=== PATIENT | male | born 1950 | race Caucasian/White ===

== ENCOUNTER 2017-04-16 13:57 | Inpatient (IN) | payer MEDICARE, OTHER ==
[~2017-04-16] VITALS: Ht 175.3 cm; Wt 70.8 kg
[2017-04-16] MEDS ORDERED: RIVA1PAT12 TD (14:35)
[2017-04-16] MEDS ORDERED: POLY17PO4 PO (14:35)
[2017-04-16] MEDS ORDERED: ZINC220C8 PO (14:35)
[2017-04-16] MEDS ORDERED: ASCO500T9 PO (14:35)
[2017-04-16] MEDS ORDERED: MAGN400O6 PO (14:35)
[2017-04-16] MEDS ORDERED: POVI3780 TP (14:35)
[2017-04-16] MEDS ORDERED: BISA10SU8 RC (14:35)
[2017-04-16] MEDS ORDERED: MULT-447 PO (14:35)
[2017-04-16] MEDS ORDERED: SENN-167 PO (14:35)
[2017-04-16] MEDS ORDERED: VITA56.7 TP (14:35)
[2017-04-16] MEDS ORDERED: NUTR1PAC14 PO (14:35)
[2017-04-16] MEDS ORDERED: ACET-868 PO (14:35)
[2017-04-16 14:36] LABS: BASOPHILS # (AUTO) 0.3 /CMM (0.0-0.2); BASOPHILS % (AUTO) 2.2 % (0.0-2.0); EOSINOPHILS % (AUTO) 0.1 % (0.0-6.0); HEMATOCRIT 40 % (39-51); HEMOGLOBIN 13.9 g/dL (13.5-17.5); LYMPHOCYTES # (AUTO) 1.2 /CMM (0.8-4.8); MEAN CORPUSCULAR HEMOGLOBIN 32 PG (26.0-33.0); MEAN CORPUSCULAR HGB CONC 35 g/dl (31.0-36.0); MEAN CORPUSCULAR VOLUME 92 fL (80-96); MONOCYTES # (AUTO) 0.7 /CMM (0.1-1.30); MONOCYTES % (AUTO) 4.8 % (2.0-12.0); NEUTROPHILS # (AUTO) 12.8 /CMM (1.8-8.9); NEUTROPHILS % (AUTO) 84.9 % (43.0-81.0); PLATELET COUNT (AUTO) 226 /CMM (150-450); RDW COEFFICIENT OF VARIATION 13.2 (11.5-15.0); RED BLOOD CELL COUNT(AUTO) 4.38 MIL/uL (4.5-6.0)
[2017-04-16 14:40] LABS: APPEARANCE,URINE Clear (CLEAR); BILIRUBIN,URINE SMALL (NEGATIVE); BLOOD, URINE Small Ery/uL (NEGATIVE); KETONES,URINE 15 (NEGATIVE); LEUKOCYTE ESTERASE ,URINE Negative (NEGATIVE); NITRITE, URINE Negative (NEGATIVE); PH,URINE 5.5 (5.0-8.0); PROTEIN,URINE Trace mg/dl (NEGATIVE); UGLUCOSE Negative (NEGATIVE)
[2017-04-16 14:41] LABS: COLOR,URINE DARK YELLOW (YELLOW)
[2017-04-16 14:44] LABS: CALCIUM, SERUM 9.2 mg/dL (8.5-10.1); CARBON DIOXIDE 31 mmol/L (21-32); CHLORIDE 110 mmol/L (98-107); CREATININE 0.9 mg/dL (0.6-1.3); GLUCOSE 143 mg/dL (74-106); POTASSIUM 3.7 mmol/L (3.5-5.1); SODIUM SERUM 147 mmol/L (136-145); UREA NITROGEN, BLOOD 36 mg/dL (7-18)
[2017-04-16 14:50] LABS: ALANINE AMINOTRANSFERASE 53 U/L (12-78); ALBUMIN 2.7 g/dL (3.4-5.0); ALKALINE PHOSPHATASE 84 U/L (46-116); ASPARTATE AMINOTRANSFERASE 33 U/L (15-37); BILIRUBIN,DIRECT 0.6 mg/dL (0.0-0.2); TOTAL PROTEIN, SERUM 7.3 g/dL (6.4-8.2)
[2017-04-16 14:51] LABS: ALCOHOL, BLOOD < 3 mg/dL (0-0); SALICYLATE 1.7 mg/dL (2.8-20.0)
[2017-04-16 14:52] LABS: ACETAMINOPHEN < 2 ug/ml (10-30); TROPONIN I < 0.017 ng/mL (0.00-0.056)
[2017-04-16 14:58] LABS: BACTERIA,URINE None seen /HPF (None Seen); SQUAMOUS EPITHELIAL CELL,UR Few /HPF (None Seen); WBC,URINE 0-3 /HPF (0-3)
--- NOTE | 2017-04-16 15:03 | NUR ---
SUSANNE CUETO CALLED FOR EVAL
[2017-04-16 16:00] VITALS: BP 127/87
[2017-04-16] MEDS ORDERED: PIPERACILLIN /TAZOBACTAM 3.375 G in IV D5W 50 ML IV ONE (16:00)
[2017-04-16] MEDS ORDERED: IV NS 0.9% 1,000 ML BAG IV ONE (16:00)
[2017-04-16] MEDS ORDERED: VANCOMYCIN 1 GM in IV D5W 250 ML IV ONE (16:00)
--- NOTE | 2017-04-16 17:01 | NUR ---
REPORT GIVEN TO GERARDO BUCHANAN FOR ZAIDA
--- NOTE | 2017-04-16 17:30 | NUR ---
RN MS NOTES RECEIVED PT FROM E.R. STAFF VIA JESSE, AWAKE, ALERT TO SELF, VERBALLY RESPONSIVE, WITH CONFUSION, NO SIGN OF PAIN OR DISTRESS, ASSISTED TO BED, MADE COMFORTABLE, SKIN CHECK DONE, KEPT WARM AND COMFORTABLE IN BED.
--- NOTE | 2017-04-16 19:00 | NUR ---
RN NOTES RECEIVE PT IN BED, A/O X 1, STABLE, NO S/S OF DISTRESS, PATIENT KEPT COMFORTABLE AT THIS TIME, SAFETY MEASURES IN PLACE, CALL LIGHT WITHIN REACH, WILL CONTINUE TO MONITOR.
[2017-04-16] MEDS ORDERED: IV NS 0.9% 1,000 ML BAG IV PRN (19:30)
[2017-04-16 20:00] VITALS: BP 139/78
[2017-04-16] MEDS ORDERED: ZOLPIDEM TARTRATE 5 MG TABLET PO PRN (20:00)
[2017-04-16] MEDS ORDERED: ONDANSETRON HCL/PF 4 MG/2 ML VIAL IVP PRN (20:00)
[2017-04-16] MEDS ORDERED: HYDROCODONE/APAP 5/325MG 1 EACH TABLET PO PRN (20:00)
[2017-04-16] MEDS ORDERED: ACETAMINOPHEN 325 MG TABLET PO PRN (20:00)
[2017-04-16] MEDS: IV NS 0.9% 1,000 ML IV PRN (20:09)
[2017-04-16] MEDS ORDERED: FEE PK DOSING 1 MIN EA MC ONE (20:10)
[2017-04-16] MEDS: ENOXAPARIN SODIUM 40 MG/0.4 ML DISP.SYRIN SQ SCH (20:11)
[2017-04-16 21:52] VITALS: BP 139/78
[2017-04-17] MEDS: VANCOMYCIN 1 GM in IV D5W 250 ML IV SCH ×2 (04:07→16:06)
[2017-04-17 06:13] LABS: BASOPHILS % (AUTO) 0.3 % (0.0-2.0); EOSINOPHILS % (AUTO) 0.2 % (0.0-6.0); HEMATOCRIT 39 % (39-51); HEMOGLOBIN 13.4 g/dL (13.5-17.5); LYMPHOCYTES # (AUTO) 0.9 /CMM (0.8-4.8); MEAN CORPUSCULAR HEMOGLOBIN 33 PG (26.0-33.0); MEAN CORPUSCULAR HGB CONC 35 g/dl (31.0-36.0); MEAN CORPUSCULAR VOLUME 94 fL (80-96); MONOCYTES # (AUTO) 0.6 /CMM (0.1-1.30); MONOCYTES % (AUTO) 5.1 % (2.0-12.0); NEUTROPHILS # (AUTO) 10.2 /CMM (1.8-8.9); NEUTROPHILS % (AUTO) 86.4 % (43.0-81.0); PLATELET COUNT (AUTO) 196 /CMM (150-450); RDW COEFFICIENT OF VARIATION 13.8 (11.5-15.0); RED BLOOD CELL COUNT(AUTO) 4.11 MIL/uL (4.5-6.0); WHITE BLOOD COUNT (AUTO) 11.8 K/uL (4.3-11.0)
[2017-04-17 06:25] LABS: CREATININE 0.9 mg/dL (0.6-1.3); MAGNESIUM 2.1 mg/dL (1.8-2.4); POTASSIUM 3.6 mmol/L (3.5-5.1)
--- NOTE | 2017-04-17 06:44 | NUR ---
MS RN CLOSING NOTES PATIENT IN BED ASLEEP AND EASILY AWAKEN, 1:1 SITTER, HEAD OF BED ELEVATED FOR BETTER LUNG EXPANSION AND GOOD CIRCULATION. STABLE, NOT IN DISTRESS. TOLERATING ROOM AIR 99% NO SOB, KEPT CLEAN AND DRY AND COMFORTABLE. NEEDS ATTENDED AND ANTICIPATED. NURSING CARE RENDERED, ASSISTED REPOSITION Q2H, ON LOW BED TO ENSURE SAFETY, CALL LIGHT WITHIN REACH, WILL ENDORSE TO THE NEXT SHIFT CONTINUE PLAN OF CARE.
[2017-04-17 08:00] VITALS: BP 140/89
[2017-04-17] MEDS ORDERED: HYDROGEL DRESSING 90 GM TUBE TP PRN (08:30)
[2017-04-17] MEDS ORDERED: Z GUARD REMEDY 2 OZ OINT TP PRN (08:30)
--- NOTE | 2017-04-17 08:37 | NUR ---
WOUND CARE CONSULT: PT PRESENTS WITH MULTIPLE WOUNDS INCLUDING STAGE 2 ULCER TO LEFT BUTTOCK, MULTIPLE ESCHARS TO LOWER EXTREMITIES, ESPECIALLY LEFT LOWER EXTREMITY, LEFT 2ND AND 3RD DORSAL TOES, ALL PRESENT ON ADMISSION. RECOMMEND LEORA ISOFLEX LOW AIRLOSS BED. RECOMMEND PODIATRY CONSULT. ALL SKIN PROTECTION AND WOUND RECOMMENDATIONS DISCUSSED WITH NURSING STAFF. WILL SEE PRN. SHETH IN AGREEMENT WITH PLAN OF CARE. CURRENT JUSTYN SCORE IS 14. Addendum: 04/17/17 at 0839 by OSMAN HARVEY WNDNU Amended: Links added.
[2017-04-17] MEDS ORDERED: HYDROGEL DRESSING 90 GM TUBE TP SCH (09:00)
[2017-04-17] MEDS: SENNOSIDES 8.6 MG TABLET PO SCH (09:50)
[2017-04-17] MEDS: MULTIVIT, IRON, MIN NO. 8, FA 1 TAB PO SCH (09:50)
[2017-04-17] MEDS: ZINC SULFATE 220 MG CAPSULE PO SCH (09:50)
[2017-04-17] MEDS: ASCORBIC ACID 500 MG TABLET PO SCH (09:50)
[2017-04-17] MEDS: RIVASTIGMINE TARTRATE 4.6 MG PATCH.TD24 TD SCH (11:38)
[2017-04-17] MEDS: Z GUARD REMEDY 2 OZ OINT TP SCH (12:57)
--- NOTE | 2017-04-17 14:00 | NUR ---
RN NOTES PATIENT BECAME RESTLESS AND COMBATIVE WITH STAFF, TRYING TO GET OUT OF BED, PATIENT DOES NOT FOLLOW INSTRUCTIONS. CALLED DR. DAWN, AND RECEIVED AN ORDER FOR ZYPREXA IM X1, ORDER NOTED AND CARRIED OUT.
[2017-04-17] MEDS ORDERED: OLANZAPINE 10 MG VIAL IM ONE ×2 (14:30→15:00)
--- NOTE | 2017-04-17 14:58 | NUR ---
DEWAYNE NOTES PATIENT GOT AGITATED, ACCIDENTALLY DROPPED THE MEDICATION ON THE FLOOR, AND VIAL BROKE. Addendum: 04/17/17 at 1502 by AISSATOU MARTELL RN ADDENDUM: SHERLYN WASTED, WITNESSED BY JACK BUCHANAN. CALLED PHARMACY. RE-ORDERED MEDICATION.
[2017-04-17 16:00] VITALS: BP 138/83
[2017-04-17] MEDS: BOOST PLUS FOOD-VANILLA 237 ML BOX PO SCH (17:15)
--- NOTE | 2017-04-17 17:59 | NUR ---
RN NOTES PATIENT NOTE WITH INCREASED AGITATION, PATIENT KEPT SAYING HE WANTS TO LEAVE AND HE NEEDS TO GET SOMETHING IN THE CAR, PATIENT IS VERY COMBATIVE, ATTEMPTED TO KICK, BITE, AND HIT STAFF. PATIENT REFUSING ADL CARE, REFUSING WOUND TREATMENT, MEPILEX ON FOOT, CAME OFF DUE TO PATIENT'S CONSTANT RUBBING AND MOVING. DR. DAWN MADE AWARE OF PATIENT'S CURRENT BEHAVIOR. RECEIVED ORDER FOR HALDOL 5MG X1, ATIVAN 1MG X1 AND COGENTIN 1MG X1 NOW. ORDER NOTED AND CARRIED OUT.
[2017-04-17] MEDS ORDERED: LORAZEPAM INJ 2 MG/ML VIAL IM ONE (18:00)
[2017-04-17] MEDS ORDERED: BENZTROPINE MESYLATE (2MG/2ML) 2 MG/2 ML AMPUL IM ONE (18:00)
[2017-04-17] MEDS ORDERED: HALOPERIDOL LACTATE INJ 5 MG/ML VIAL IM ONE (18:00)
--- NOTE | 2017-04-17 18:32 | NUR ---
RN NOTES WAITING FOR PHARMACY TO DELIVER COGENTIN. PT GIVEN ATIVAN AND HALDOL. ADL CARE PROVIDED. SITTER AT BEDSIDE. STILL UNABLE TO PROVIDE WOUND TREATMENT PATIENT STILL KICKS. NEEDS ATTENDED AND MET, CALL LIGHT WITHIN REACH, WILL ENDORSE TO MACHINE CELL TUBER FOR ZAIDA.
--- NOTE | 2017-04-17 19:00 | NUR ---
RN NOTES RECEIVE PT IN BED, A/O X 1, CONFUSED, STABLE, NO S/S OF DISTRESS, PATIENT KEPT COMFORTABLE AT THIS TIME, SAFETY MEASURES IN PLACE, CALL LIGHT WITHIN REACH, WILL CONTINUE TO MONITOR.
[2017-04-17 20:00] VITALS: BP 125/75
[2017-04-17] MEDS: IV NS 0.9% 1,000 ML IV PRN (20:30)
[2017-04-17] MEDS: ENOXAPARIN SODIUM 40 MG/0.4 ML DISP.SYRIN SQ SCH (20:34)
[2017-04-18] MEDS: VANCOMYCIN 1 GM in IV D5W 250 ML IV SCH ×2 (04:16→17:39)
--- NOTE | 2017-04-18 06:26 | NUR ---
MS RN CLOSING NOTES PATIENT IN BED COMFORTABLY ASLEEP AND EASILY AWAKEN, STABLE CONDITION NOT IN FORM OF DISTRESS. NO SOB, TOLERATING ROOM AIR 99% PT 1:1 SITTER AT BEDSIDE, NEEDS ATTENDED AND ANTICIPATED. NURSING CARE RENDERED, KEPT CLEAN AND DRY AND COMFORTABLE. TX ORDERED TO HIS WOUNDS, GOOD SKIN CARE PROVIDED. ASSITED REPOSITION PATIENT Q2H. ON LOW BED TO ENSURE SAFETY, CALL LIGHT WITHIN REACH, WILL ENDORSE TO THE NEXT SHIFT CONTINUE PLAN OF CARE.
--- NOTE | 2017-04-18 07:29 | NUR ---
MS RN OPENING NOTES PATIENT RECEIVED ASLEEP IN BED, AWAKENS EASILY. SITTER AT BEDSIDE FOR CLOSE MONITORING. HOB ELEVATED. ON ROOM AIR, BREATHING EVEN AND UNLABORED. IV ACCESSES ON LAC AND RIGHT HAND BOTH INTACT AND PATENT. IVF OF NS @ 75ML/HR INFUSING TO RAC. BED IN LOW/LOCKED POSITION WITH SIDE-RAILS UP APPROPRIATE. CALL LIGHT WITHIN EASY REACH. WILL CONTINUE TO CLOSELY MONITOR PT ACCORDINGLY.
[2017-04-18] MEDS: BOOST PLUS FOOD-VANILLA 237 ML BOX PO SCH ×2 (07:57→16:32)
[2017-04-18] MEDS: RIVASTIGMINE TARTRATE 4.6 MG PATCH.TD24 TD SCH (08:23)
[2017-04-18] MEDS: ZINC SULFATE 220 MG CAPSULE PO SCH (08:23)
[2017-04-18] MEDS: SENNOSIDES 8.6 MG TABLET PO SCH (08:23)
[2017-04-18] MEDS: Z GUARD REMEDY 2 OZ OINT TP SCH (08:23)
[2017-04-18] MEDS: MULTIVIT, IRON, MIN NO. 8, FA 1 TAB PO SCH (08:23)
[2017-04-18] MEDS: ASCORBIC ACID 500 MG TABLET PO SCH (08:23)
[2017-04-18 11:22] LABS: CALCIUM, SERUM 8.5 mg/dL (8.5-10.1); CREATININE 0.9 mg/dL (0.6-1.3); POTASSIUM 3.1 mmol/L (3.5-5.1)
[2017-04-18] MEDS ORDERED: POTASSIUM CHLORIDE 20 MEQ TAB.PRT.SR PO ONE (12:00)
[2017-04-18] MEDS: HALOPERIDOL 1 MG TABLET PO SCH ×2 (12:07→17:39)
[2017-04-18] MEDS: GABAPENTIN 100 MG CAPSULE PO SCH ×2 (12:07→17:39)
[2017-04-18] MEDS: BENZTROPINE MESYLATE (1 MG) 1 MG TABLET PO SCH ×2 (12:07→17:39)
[2017-04-18 12:15] LABS: BASOPHILS # (AUTO) 0.1 /CMM (0.0-0.2); BASOPHILS % (AUTO) 0.3 % (0.0-2.0); HEMATOCRIT 38 % (39-51); HEMOGLOBIN 13.1 g/dL (13.5-17.5); LYMPHOCYTES # (AUTO) 0.9 /CMM (0.8-4.8); LYMPHOCYTES % (AUTO) 5.5 % (20.0-44.0); MEAN CORPUSCULAR HEMOGLOBIN 32 PG (26.0-33.0); MEAN CORPUSCULAR HGB CONC 35 g/dl (31.0-36.0); MEAN CORPUSCULAR VOLUME 92 fL (80-96); MONOCYTES # (AUTO) 0.5 /CMM (0.1-1.30); MONOCYTES % (AUTO) 3.4 % (2.0-12.0); NEUTROPHILS # (AUTO) 14.3 /CMM (1.8-8.9); NEUTROPHILS % (AUTO) 90.8 % (43.0-81.0); PLATELET COUNT (AUTO) 191 /CMM (150-450); RDW COEFFICIENT OF VARIATION 13.8 (11.5-15.0); RED BLOOD CELL COUNT(AUTO) 4.09 MIL/uL (4.5-6.0); WHITE BLOOD COUNT (AUTO) 15.7 K/uL (4.3-11.0)
[2017-04-18 13:01] LABS: LYMPHOCYTES % (MANUAL) 7 % (16-48); MONOCYTES % (MANUAL) 7 % (0-11.0); NEUTROPHILS % (MANUAL) 86 (42-76)
[2017-04-18] MEDS: IV NS 0.9% 1,000 ML IV PRN (16:28)
--- NOTE | 2017-04-18 18:33 | NUR ---
MS RN CLOSING NOTES PATIENT PRESENTLY AWAKE, CALM AND QUIET IN BED WITH SITTER AT BEDSIDE FOR CLOSE MONITORING. A/O X 1, CONFUSED AND RESTLESS ON AND OFF DURING THE DAY, EMOTIONAL SUPPORT GIVEN. ON ROOM AIR, BREATHING EVEN AND UNLABORED, NO ACUTE RESPIRATORY DISTRESS NOTED. IV ACCESS ON LAC AND SIVAN BOTH INTACT AND PATENT. IVF OF NS @ 75ML/HR INFUSING TO SIVAN IV SITE, NO SIGNS OF INFILTRATION NOTED. HOB KEPT ELEVATED. BED IN LOW/LOCKED POSITION WITH SIDE-RAILS UP APPROPRIATE. CALL LIGHT WITHIN EASY REACH. ALL SAFETY PRECAUTIONS MAINTAINED. ALL NEEDS AND CARE PROVIDED WELL. WILL ENDORSED TO SPACE PHYSICIST NURSE FOR ZAIDA.
--- NOTE | 2017-04-18 19:00 | NUR ---
RN NOTES RECEIVE PT IN BED, A/O X 1, 1:1 SITTER. CONFUSED, STABLE, NO S/S OF DISTRESS, PATIENT KEPT COMFORTABLE AT THIS TIME, SAFETY MEASURES IN PLACE, CALL LIGHT WITHIN REACH, WILL CONTINUE TO MONITOR.
[2017-04-18 20:00] VITALS: BP 142/75
[2017-04-18] MEDS: ENOXAPARIN SODIUM 40 MG/0.4 ML DISP.SYRIN SQ SCH (20:50)
[2017-04-19] MEDS: VANCOMYCIN 1 GM in IV D5W 250 ML IV SCH ×2 (04:13→17:19)
--- NOTE | 2017-04-19 06:23 | NUR ---
MS RN CLOSING NOTES PT COMFORTABLY ASLEEP IN BED AND EASILY AWAKEN, NOT IN RESPIRATORY DISTRESS TOLERATING ROOM AIR 95% HEAD OF BED ELEVATED AT ALL TIMES FOR BETTER LUNG EXPANSION AND GOOD CIRCULATION. STABLE, TREATMENT ORDERED TO THE PT WOUNDS, GOOD SKIN CARE PROVIDED. HANDLED WITH CARE, NOT APPEAR IN DISTRESS NEEDS ATTENDED AND ANTICIPATED. KEPT CLEAN AND DRY AND COMFORTABLE. NURSING CARE RENDERED, PT REPOSITIONED EVERY 2 HOURS FOR COMFORT AND SKIN MGT, 1:1 SITTER AT BEDSIDE. ON LOW BED TO ENSURE SAFETY, CALL LIGHT WITHIN REACH, WILL ENDORSE TO THE NEXT SHIFT CONTINUE PLAN OF CARE.
[2017-04-19 06:33] LABS: HEMATOCRIT 34 % (39-51); HEMOGLOBIN 11.9 g/dL (13.5-17.5); LYMPHOCYTES # (AUTO) 0.8 /CMM (0.8-4.8); MEAN CORPUSCULAR HEMOGLOBIN 32 PG (26.0-33.0); MEAN CORPUSCULAR HGB CONC 35 g/dl (31.0-36.0); MEAN CORPUSCULAR VOLUME 94 fL (80-96); MONOCYTES # (AUTO) 0.6 /CMM (0.1-1.30); MONOCYTES % (AUTO) 3.6 % (2.0-12.0); NEUTROPHILS # (AUTO) 14.6 /CMM (1.8-8.9); NEUTROPHILS % (AUTO) 91.4 % (43.0-81.0); PLATELET COUNT (AUTO) 163 /CMM (150-450); RDW COEFFICIENT OF VARIATION 14.2 (11.5-15.0); RED BLOOD CELL COUNT(AUTO) 3.67 MIL/uL (4.5-6.0)
[2017-04-19 06:49] LABS: CALCIUM, SERUM 8.3 mg/dL (8.5-10.1); CREATININE 0.7 mg/dL (0.6-1.3); MAGNESIUM 1.9 mg/dL (1.8-2.4); PHOSPHORUS 2.7 mg/dL (2.5-4.9)
[2017-04-19 06:50] LABS: POTASSIUM 2.7 mmol/L (3.5-5.1)
--- NOTE | 2017-04-19 07:11 | NUR ---
MS RN NOTES ENDORSE TO THE AM SHIFT RN RESULT OF K
[2017-04-19 07:16] LABS: LYMPHOCYTES % (MANUAL) 5 % (16-48); MONOCYTES % (MANUAL) 5 % (0-11.0); NEUTROPHILS % (MANUAL) 90 (42-76)
--- NOTE | 2017-04-19 07:41 | NUR ---
MS RN OPENING NOTES PATIENT RECEIVED AWAKE IN BED IN NO ACUTE SIGNS OF DISTRESS. SITTER AT BEDSIDE FOR CLOSE MONITORING. A/O X1, CONFUSED AND SLIGHTLY AGITATED. ON ROOM AIR, BREATHING EVEN AND UNLABORED. IVF OF NS @ 75ML/HR INFUSING TO SIVAN, NO SIGNS OF INFILTRATION NOTED. BED IN LOW/LOCKED POSITION WITH SIDE-RAILS UP APPROPRIATE. CALL LIGHT WITHIN EASY REACH. WILL CONTINUE TO CLOSELY MONITOR PT ACCORDINGLY.
[2017-04-19 08:00] VITALS: BP 132/87
[2017-04-19] MEDS: BOOST PLUS FOOD-VANILLA 237 ML BOX PO SCH ×2 (08:07→16:51)
[2017-04-19] MEDS: HALOPERIDOL 1 MG TABLET PO SCH ×3 (08:09→17:45)
[2017-04-19] MEDS: BENZTROPINE MESYLATE (1 MG) 1 MG TABLET PO SCH ×3 (08:10→17:47)
[2017-04-19] MEDS: RIVASTIGMINE TARTRATE 4.6 MG PATCH.TD24 TD SCH (08:10)
[2017-04-19] MEDS: GABAPENTIN 100 MG CAPSULE PO SCH ×3 (08:10→17:45)
[2017-04-19] MEDS: MULTIVIT, IRON, MIN NO. 8, FA 1 TAB PO SCH (08:10)
[2017-04-19] MEDS: SENNOSIDES 8.6 MG TABLET PO SCH (08:10)
[2017-04-19] MEDS: ASCORBIC ACID 500 MG TABLET PO SCH (08:10)
[2017-04-19] MEDS: Z GUARD REMEDY 2 OZ OINT TP SCH (08:11)
[2017-04-19] MEDS: ZINC SULFATE 220 MG CAPSULE PO SCH (08:17)
[2017-04-19] MEDS ORDERED: LORAZEPAM 0.5 MG TABLET PO PRN (10:30)
[2017-04-19] MEDS: POTASSIUM CL. PREMIX PERIPHER. 50 ML IV SCH ×6 (12:07→16:46)
[2017-04-19] MEDS: LEVOFLOXACIN 750 MG /D5W 150ML 750 MG in PREMIX 1 EA IV SCH (12:59)
[2017-04-19] MEDS ORDERED: TEMAZEPAM 15 MG CAPSULE PO PRN (13:00)
[2017-04-19] MEDS: IV NS 0.9% 1,000 ML IV PRN (14:19)
[2017-04-19 16:00] VITALS: BP 111/68
[2017-04-19] MEDS: LACTOBACILLUS RHAMNOSUS GG 1 EACH CAP.SPRINK PO SCH (16:51)
--- NOTE | 2017-04-19 18:51 | NUR ---
MS RN CLOSING NOTES PATIENT AWAKE IN BED WITH SITTER AT BEDSIDE FOR CLOSE MONITORING. A/O X1, CONFUSED AND AGITATED ON AND OFF DURING THE DAY. ALL NEEDS AND CARE PROVIDED WELL. ON ROOM AIR, BREATHING EVEN AND UNLABORED. IVF OF NS @ 75ML/HR INFUSING TO LAC, NO SIGNS OF INFILTRATION NOTED. HOB KEPT ELEVATED. BED IN LOW AND LOCKED POSITION WITH SIDE-RAILS UP APPROPRIATE. CALL LIGHT WITHIN EASY REACH. WILL CONTINUE TO CLOSELY MONITOR PT ACCORDINGLY.
--- NOTE | 2017-04-19 19:20 | NUR ---
RN OPEN NOTES RECEIVED PATIENT RESTING IN BED, EASILY AROUSABLE, WITH SITTER AT BEDSIDE. A/O X1. NO SIGNS OF DISTRESS OR DISCOMFORT. BREATHING EVEN AND UNLABORED. IV ACCESS IN LAC WITH VANCO INFUSING, PATENT AND INTACT,NO SIGNS OF REDNESS OR INFILTRATION. BED IN LOW LOCKED POSITION WITH SIDE RAILS X3. CALL LIGHT WITHIN REACH. WILL CONTINUE TO MONITOR.
[2017-04-19 20:00] VITALS: BP 125/88
[2017-04-19] MEDS: ENOXAPARIN SODIUM 40 MG/0.4 ML DISP.SYRIN SQ SCH (21:01)
[2017-04-20] MEDS: VANCOMYCIN 1 GM in IV D5W 250 ML IV SCH ×2 (05:32→18:58)
--- NOTE | 2017-04-20 06:53 | NUR ---
RN CLOSING NOTES PATIENT AWAKE IN BED WITH SITTER AT BEDSIDE. A/O X1. NO SIGNS OF DISTRESS OR DISCOMFORT. BREATHING EVEN AND UNLABORED. IV ACCESS IN RFA WITH NS INFUSING, PATENT AND INTACT, NO SIGNS OF REDNESS OR INFILTRATION. ALL NEEDS MET. NO SIGNIFICANT CHANGES THROUGH THE NIGHT. PATIENT KEPT CLEAN DRY AND COMFORTABLE. ASSISTED PATIENT WITH REPOSITIONING Q2H AND PRN. BED IN LOW LOCKED POSITION WITH SIDE RAILS X3. CALL LIGHT WITHIN REACH. WILL ENDORSE TO AM SHIFT FOR ZAIDA.
[2017-04-20 06:54] LABS: APPEARANCE,URINE TURBID (CLEAR); BILIRUBIN,URINE 1+ (NEGATIVE); BLOOD, URINE NEGATIVE Ery/uL (NEGATIVE); COLOR,URINE AMBER (YELLOW); KETONES,URINE TRACE (NEGATIVE); LEUKOCYTE ESTERASE ,URINE NEGATIVE (NEGATIVE); NITRITE, URINE POSITIVE (NEGATIVE); PH,URINE 5.5 (5.0-8.0); PROTEIN,URINE TRACE mg/dl (NEGATIVE); UGLUCOSE NEGATIVE (NEGATIVE)
[2017-04-20 06:57] LABS: HEMATOCRIT 37 % (39-51); HEMOGLOBIN 12.9 g/dL (13.5-17.5); LYMPHOCYTES # (AUTO) 0.6 /CMM (0.8-4.8); LYMPHOCYTES % (AUTO) 3.7 % (20.0-44.0); MEAN CORPUSCULAR HEMOGLOBIN 32 PG (26.0-33.0); MEAN CORPUSCULAR HGB CONC 35 g/dl (31.0-36.0); MEAN CORPUSCULAR VOLUME 93 fL (80-96); MONOCYTES # (AUTO) 0.6 /CMM (0.1-1.30); MONOCYTES % (AUTO) 3.5 % (2.0-12.0); NEUTROPHILS # (AUTO) 15.5 /CMM (1.8-8.9); NEUTROPHILS % (AUTO) 92.8 % (43.0-81.0); PLATELET COUNT (AUTO) 171 /CMM (150-450); RDW COEFFICIENT OF VARIATION 14.1 (11.5-15.0); RED BLOOD CELL COUNT(AUTO) 3.99 MIL/uL (4.5-6.0); WHITE BLOOD COUNT (AUTO) 16.7 K/uL (4.3-11.0)
[2017-04-20 07:03] LABS: BACTERIA,URINE Few /HPF (None Seen); RBC,URINE NONE SEEN /HPF (0-2); SQUAMOUS EPITHELIAL CELL,UR None Seen /HPF (None Seen); URINE AMORPHOUS PHOSPHATES Many /HPF (None Seen); WBC,URINE NONE SEEN /HPF (0-3)
[2017-04-20 07:11] LABS: CALCIUM, SERUM 8.8 mg/dL (8.5-10.1); CREATININE 0.8 mg/dL (0.6-1.3); MAGNESIUM 2.1 mg/dL (1.8-2.4); POTASSIUM 3.7 mmol/L (3.5-5.1)
--- NOTE | 2017-04-20 07:20 | NUR ---
MS RN OPENING NOTES RECEIVED PT FROM NIGHTSHIFT NURSE IN STABLE CONDITION. PT IS A/O X1 AND CONFUSED. NO SOB OR SIGNS OF DISTRESS NOTED. BREATHING EVEN AND UNLABORED. IVS NOTED TO BE PATENT AND INTACT. NO REDNESS SIGNS OF INFILTRATION NOTED TO EACH. PT TOLERATING NS INFUSION WELL. WOUND DRESSINGS NOTED TO BE CLEAN, DRY, AND INTACT. 1:1 SITTER AT BEDSIDE. BED IN LOW LOCKED POSITION, SIDE RAILS UP X3, CALL LIGHT WITHIN REACH. WILL CONTINUE TO MONITOR
[2017-04-20 07:55] VITALS: BP 122/90
[2017-04-20 09:40] LABS: LYMPHOCYTES % (MANUAL) 5 % (16-48); MONOCYTES % (MANUAL) 7 % (0-11.0); NEUTROPHILS % (MANUAL) 88 (42-76)
[2017-04-20] MEDS: HALOPERIDOL 1 MG TABLET PO SCH ×3 (09:43→18:09)
[2017-04-20] MEDS: ZINC SULFATE 220 MG CAPSULE PO SCH (09:43)
[2017-04-20] MEDS: MULTIVIT, IRON, MIN NO. 8, FA 1 TAB PO SCH (09:43)
[2017-04-20] MEDS: ASCORBIC ACID 500 MG TABLET PO SCH (09:43)
[2017-04-20] MEDS: LACTOBACILLUS RHAMNOSUS GG 1 EACH CAP.SPRINK PO SCH ×2 (09:43→18:08)
[2017-04-20] MEDS: BENZTROPINE MESYLATE (1 MG) 1 MG TABLET PO SCH ×3 (09:43→18:09)
[2017-04-20] MEDS: SENNOSIDES 8.6 MG TABLET PO SCH (09:43)
[2017-04-20] MEDS: BOOST PLUS FOOD-VANILLA 237 ML BOX PO SCH ×2 (09:44→18:08)
[2017-04-20] MEDS: Z GUARD REMEDY 2 OZ OINT TP SCH (09:44)
[2017-04-20] MEDS: RIVASTIGMINE TARTRATE 4.6 MG PATCH.TD24 TD SCH (09:44)
[2017-04-20] MEDS: GABAPENTIN 100 MG CAPSULE PO SCH ×3 (10:39→18:09)
[2017-04-20] MEDS: LEVOFLOXACIN 750 MG /D5W 150ML 750 MG in PREMIX 1 EA IV SCH (12:38)
[2017-04-20 16:31] VITALS: BP 132/83
[2017-04-20] MEDS: ZOSYN IVPB 3.375 G in IV D5W 50ml IV SCH (18:08)
--- NOTE | 2017-04-20 18:33 | NUR ---
MS RN CLOSING NOTES PT REMAINS IN STABLE CONDITION. ALL NEEDS MET DURING SHIFT AND ORDERS CARRIED OUT ACCORDINGLY. ALL DUE MEDS GIVEN. NO ACUTE CHANGES IN CONDITION THROUGHOUT SHIFT. 1:1 SITTER AT BEDSIDE. WILL ENDORSE TO NIGHTSHIFT NURSE FOR ZAIDA
--- NOTE | 2017-04-20 19:05 | NUR ---
RN OPEN NOTES RECEIVED PATIENT RESTING IN BED, EASILY AROUSABLE, WITH SITTER AT BEDSIDE. A/O X1. NO SIGNS OF DISTRESS OR DISCOMFORT. BREATHING EVEN AND UNLABORED. IV ACCESS IN RFA WITH NS INFUSING, PATENT AND INTACT,NO SIGNS OF REDNESS OR INFILTRATION. BED IN LOW LOCKED POSITION WITH SIDE RAILS X3. CALL LIGHT WITHIN REACH. WILL CONTINUE TO MONITOR.
[2017-04-20 20:00] VITALS: BP 101/68
[2017-04-20] MEDS: ENOXAPARIN SODIUM 40 MG/0.4 ML DISP.SYRIN SQ SCH (21:55)
[2017-04-21] MEDS: ZOSYN IVPB 3.375 G in IV D5W 50ml IV SCH ×5 (00:34→23:49)
[2017-04-21] MEDS: VANCOMYCIN 1 GM in IV D5W 250 ML IV SCH ×2 (05:30→17:33)
[2017-04-21] MEDS: IV NS 0.9% 1,000 ML IV PRN (05:32)
[2017-04-21 06:39] LABS: HEMATOCRIT 34 % (39-51); HEMOGLOBIN 11.9 g/dL (13.5-17.5); LYMPHOCYTES # (AUTO) 0.5 /CMM (0.8-4.8); LYMPHOCYTES % (AUTO) 2.7 % (20.0-44.0); MEAN CORPUSCULAR HEMOGLOBIN 32 PG (26.0-33.0); MEAN CORPUSCULAR HGB CONC 35 g/dl (31.0-36.0); MEAN CORPUSCULAR VOLUME 93 fL (80-96); MONOCYTES # (AUTO) 0.6 /CMM (0.1-1.30); MONOCYTES % (AUTO) 3.6 % (2.0-12.0); NEUTROPHILS # (AUTO) 16.1 /CMM (1.8-8.9); NEUTROPHILS % (AUTO) 93.7 % (43.0-81.0); PLATELET COUNT (AUTO) 153 /CMM (150-450); RDW COEFFICIENT OF VARIATION 13.8 (11.5-15.0); RED BLOOD CELL COUNT(AUTO) 3.69 MIL/uL (4.5-6.0); WHITE BLOOD COUNT (AUTO) 17.1 K/uL (4.3-11.0)
[2017-04-21 06:52] LABS: CALCIUM, SERUM 8.3 mg/dL (8.5-10.1); CREATININE 0.8 mg/dL (0.6-1.3); MAGNESIUM 1.9 mg/dL (1.8-2.4); PHOSPHORUS 3.4 mg/dL (2.5-4.9); POTASSIUM 2.9 mmol/L (3.5-5.1)
--- NOTE | 2017-04-21 07:10 | NUR ---
RN CLOSING NOTES PATIENT RESTING IN BED, EASILY AROUSABLE, WITH SITTER AT BEDSIDE. A/O X1. NO SIGNS OF DISTRESS OR DISCOMFORT. BREATHING EVEN AND UNLABORED. IV ACCESS IN RFA WITH NS INFUSING, PATENT AND INTACT,NO SIGNS OF REDNESS OR INFILTRATION. ALL NEEDS MET. NO SIGNIFICANT CHANGES THROUGH THE NIGHT. PATIENT REPOSITIONED Q2H AND PRN. BED IN LOW LOCKED POSITION WITH SIDE RAILS X3. CALL LIGHT WITHIN REACH. WILL ENDORSE TO AM SHIFT FOR ZAIDA.
--- NOTE | 2017-04-21 07:30 | NUR ---
MS RN NOTES PATIENT IN BED EYES CLOSED, ALERT ORIENTED X1. RESPONSE TO VERBAL AND TACTILE STIMULI. NO ACUTE DISTRESS NOTED. BREATHING UNLABORED. NO SOB NOTED. IV ACCESS PATENT AND INTACT, NO REDNESS OR SWELLING ON THE SITE. HOB ELEVATED. SAFETY MEASURES IN PLACE. CALL LIGHT WITHIN REACH. WILL CONTINUE TO MONITOR ACCORDINGLY.
[2017-04-21 08:00] VITALS: BP 125/93
[2017-04-21] MEDS: MULTIVIT, IRON, MIN NO. 8, FA 1 TAB PO SCH (09:21)
[2017-04-21] MEDS: ZINC SULFATE 220 MG CAPSULE PO SCH (09:21)
[2017-04-21] MEDS: ASCORBIC ACID 500 MG TABLET PO SCH (09:21)
[2017-04-21] MEDS: SENNOSIDES 8.6 MG TABLET PO SCH (09:22)
[2017-04-21] MEDS: BENZTROPINE MESYLATE (1 MG) 1 MG TABLET PO SCH ×3 (09:22→17:38)
[2017-04-21] MEDS: LACTOBACILLUS RHAMNOSUS GG 1 EACH CAP.SPRINK PO SCH ×2 (09:22→17:38)
[2017-04-21] MEDS: RIVASTIGMINE TARTRATE 4.6 MG PATCH.TD24 TD SCH (09:22)
[2017-04-21] MEDS: BOOST PLUS FOOD-VANILLA 237 ML BOX PO SCH ×2 (09:25→17:40)
[2017-04-21] MEDS: GABAPENTIN 100 MG CAPSULE PO SCH ×3 (09:25→17:38)
[2017-04-21] MEDS: HALOPERIDOL 1 MG TABLET PO SCH ×3 (09:27→17:38)
[2017-04-21] MEDS: Z GUARD REMEDY 2 OZ OINT TP SCH (09:28)
[2017-04-21] MEDS: POTASSIUM CHLORIDE 20 MEQ TAB.PRT.SR PO SCH ×3 (12:17→15:45)
--- NOTE | 2017-04-21 18:30 | NUR ---
MS RN NOTES PATIENT IN BED, ALERT ORIENTED X1. RESPONSE TO VERBAL AND TACTILE STIMULI. NO SOB NOTED.NO ACUTE DISTRESS NOTED. BREATHING UNLABORED. IV ACCESS PATENT AND INTACT, NO REDNESS OR SWELLING ON THE SITE. DUE MEDICATIONS GIVEN, NO ASE NOTED. NEEDS ATTENDED AND ANTICIPATED. HOB ELEVATED. SAFETY MEASURES IN PLACE. CALL LIGHT WITHIN REACH. WILL CONTINUE TO MONITOR ACCORDINGLY.WILL ENDORSE TO TURBINE OPERATOR FOR CONTINUITY OF CARE.
--- NOTE | 2017-04-21 19:30 | NUR ---
RN NOTES RECEIVED PATIENT IN BED SLEEPING, EASILY AROUSABLE. NO ACUTE DISTRESS NOTED. NO SIGNS OF PAIN AT THIS TIME. IV SITE PATENT, INTACT; IVF INFUSING ORDERED. SITTER AT BESIDE. ON LOW BED WITH BILATERAL UPPER SIDE RAILS UP. CALL YBARRA WITHIN EASY REACH. WILL CONTINUE TO MONITOR.
[2017-04-21 20:00] VITALS: BP 120/83
[2017-04-21] MEDS: ENOXAPARIN SODIUM 40 MG/0.4 ML DISP.SYRIN SQ SCH (21:11)
[2017-04-22] MEDS: VANCOMYCIN 1 GM in IV D5W 250 ML IV SCH (04:53)
[2017-04-22] MEDS: ZOSYN IVPB 3.375 G in IV D5W 50ml IV SCH ×2 (06:29→12:31)
[2017-04-22 07:37] LABS: HEMATOCRIT 40 % (39-51); HEMOGLOBIN 13.7 g/dL (13.5-17.5); LYMPHOCYTES # (AUTO) 0.6 /CMM (0.8-4.8); MEAN CORPUSCULAR HEMOGLOBIN 32 PG (26.0-33.0); MEAN CORPUSCULAR HGB CONC 35 g/dl (31.0-36.0); MEAN CORPUSCULAR VOLUME 93 fL (80-96); MONOCYTES # (AUTO) 0.2 /CMM (0.1-1.30); MONOCYTES % (AUTO) 1.2 % (2.0-12.0); NEUTROPHILS # (AUTO) 18.7 /CMM (1.8-8.9); NEUTROPHILS % (AUTO) 95.8 % (43.0-81.0); PLATELET COUNT (AUTO) 177 /CMM (150-450); RDW COEFFICIENT OF VARIATION 14.5 (11.5-15.0); RED BLOOD CELL COUNT(AUTO) 4.26 MIL/uL (4.5-6.0); WHITE BLOOD COUNT (AUTO) 19.5 K/uL (4.3-11.0)
--- NOTE | 2017-04-22 07:51 | NUR ---
MS/RN OPENING NOTE PATIENT IN BED IN STABLE CONDITION. A/O X 1-2 WITH EPISODES OF CONFUSION. 1:1 SITTER AT BEDSIDE. NO SIGNS OF ACUTE DISTRESS. NO COMPLAIN OF PAIN OR DISCOMFORT. ALL NEEDS ATTENDED TO. CALL LIGHT WITHIN REACH. WILL CONTINUE TO MONITOR TO ENSURE SAFETY.
[2017-04-22 08:00] VITALS: BP 115/88
[2017-04-22] MEDS ORDERED: VANCOMYCIN 0.75 GM in IV D5W 250 ML IV SCH (08:00)
[2017-04-22 08:32] LABS: CALCIUM, SERUM 8.1 mg/dL (8.5-10.1); CREATININE 2.6 mg/dL (0.6-1.3); MAGNESIUM 2.2 mg/dL (1.8-2.4); PHOSPHORUS 5.1 mg/dL (2.5-4.9)
[2017-04-22] MEDS: ZINC SULFATE 220 MG CAPSULE PO SCH (09:05)
[2017-04-22] MEDS: ASCORBIC ACID 500 MG TABLET PO SCH (09:05)
[2017-04-22] MEDS: BOOST PLUS FOOD-VANILLA 237 ML BOX PO SCH (09:05)
[2017-04-22] MEDS: MULTIVIT, IRON, MIN NO. 8, FA 1 TAB PO SCH (09:05)
[2017-04-22] MEDS: LACTOBACILLUS RHAMNOSUS GG 1 EACH CAP.SPRINK PO SCH (09:05)
[2017-04-22] MEDS: GABAPENTIN 100 MG CAPSULE PO SCH ×2 (09:05→12:31)
[2017-04-22] MEDS: SENNOSIDES 8.6 MG TABLET PO SCH (09:05)
[2017-04-22] MEDS: BENZTROPINE MESYLATE (1 MG) 1 MG TABLET PO SCH ×2 (09:05→12:31)
[2017-04-22] MEDS: RIVASTIGMINE TARTRATE 4.6 MG PATCH.TD24 TD SCH (09:05)
[2017-04-22] MEDS: Z GUARD REMEDY 2 OZ OINT TP SCH (09:06)
[2017-04-22] MEDS: HALOPERIDOL 1 MG TABLET PO SCH ×2 (09:06→12:31)
--- NOTE | 2017-04-22 10:00 | NUR ---
MS/RN SPOKE WITH DR INMAN SPOKE WITH DR INMAN AND INFORMED PATIENT'S K=3.0L, BUN/CR 36/2.6H. ALSO MADE AWARE PER PHARMACY GERALDO THEY WONT ABLE TO REPLACE POTASSIUM SECONDARY TO CR 2.6H. ALSO TOLD DR INMAN PER PT, NEEDS CLARIFICATION REGARDING PATIENT WEIGHT BEARING STATUS ON LOWER EXTREMITIES SECONDARY TO WOUNDS. PER DR INMAN, ONLY TRY TO GET PATIENT AT THE EDGE OF BED TOLERATED. PT AWARE.
[2017-04-22] MEDS ORDERED: GABA100C PO (12:12)
[2017-04-22] MEDS ORDERED: LACT1CAP72 PO (12:12)
[2017-04-22] MEDS ORDERED: BENZ1TAB7 PO (12:12)
[2017-04-22] MEDS ORDERED: SULF1TAB48 PO (12:12)
[2017-04-22] MEDS ORDERED: Boost Plus Food-Vanilla PO (12:12)
[2017-04-22] MEDS ORDERED: HALOPERIDOL 1 MG TABLET PO SCH ×2 (13:00→18:00)
--- NOTE | 2017-04-22 16:33 | NUR ---
MS/SOLUTION MAKER PATIENT DISCHARGE TO [facility] UNIT. A/O X 1 WITH EPISODES OF CONFUSION, 1:1 SITTER. NO SIGNS OF ACUTE DISTRESS. NO COMPLAIN OF PAIN OR DISCOMFORT. DISCHARGE INSTRUCTIONS AND TEACHINGS PROVIDED, UNABLE TO COMPREHEND. REPORT GIVEN TO ALEJANDRO BUCHANAN FROM [facility] UNIT. ALL NEEDS ATTENDED TO. NAME BAND AND IV LINE REMOVED. TRANSFER VIA BED TO ROOM 214A [facility] UNIT.
== END 2017-04-22 16:40 | DRG 602 ==
LOC: ER 14:01 → GPSOV2 16:59 → MEDSG2 17:09
PROVIDERS: ADMIT Nurse Practitioner Acute Care; ATTEND Nurse Practitioner Acute Care
DX: L03.116 Cellulitis of left lower limb (principal); G92 Toxic encephalopathy; L89.322 Pressure ulcer of left buttock, stage 2; L89.312 Pressure ulcer of right buttock, stage 2; E44.0 Moderate protein-calorie malnutrition; N17.9 Acute kidney failure, unspecified; E11.51 Type 2 diabetes mellitus with diabetic peripheral angiopathy without gangrene; R53.2 Functional quadriplegia; E87.0 Hyperosmolality and hypernatremia; N39.0 Urinary tract infection, site not specified; F05 Delirium due to known physiological condition; L89.610 Pressure ulcer of right heel, unstageable; F03.90 Unspecified dementia, unspecified severity, without behavioral disturbance, psychotic disturbance, mood disturbance, and anxiety; E86.0 Dehydration; E88.09 Other disorders of plasma-protein metabolism, not elsewhere classified; Z68.23 Body mass index [BMI] 23.0-23.9, adult; F39 Unspecified mood [affective] disorder; D72.829 Elevated white blood cell count, unspecified; L98.8 Other specified disorders of the skin and subcutaneous tissue; S90.822A Blister (nonthermal), left foot, initial encounter; X58.XXXA Exposure to other specified factors, initial encounter; Y93.9 Activity, unspecified; E11.65 Type 2 diabetes mellitus with hyperglycemia; S91.302A Unspecified open wound, left foot, initial encounter; S81.802A Unspecified open wound, left lower leg, initial encounter; I10 Essential (primary) hypertension; B35.1 Tinea unguium; Y92.89 Other specified places as the place of occurrence of the external cause
CPT/HCPCS: 36415; 71045-TC; 80048-TC; 80061-TC; 80076-TC; 80202-TC; 80305; 81000-TC; 82140-TC; 83605-TC; 83735-TC; 84100-TC; 84484-TC; 85025-TC; 87081-TC; 87086-TC; 97110-TC; 97530-TC; A4216; A4349; A4606; A6248; A6402; A6403; G0480; J1650; J1956; J2543; J3370; J3480; J3490; J7030; J7060; Z7610

== ENCOUNTER 2017-04-22 19:49 | Inpatient (IN) | payer MEDICARE, OTHER ==
--- NOTE | 2017-04-22 19:15 | NUR ---
GPS RN NOTES: ADMITTED A 67-Y/O, MALE, [facility] ADMITTED ON 5150 FOR GD. PER HOLD, PATIENT PULLING ON HIS DIAPERS, DISORIENTED, AND PT STATED " I FEEL CLAUSTROPHOBIC AND ANXIOUS" I FEEL SORROUNDED AND I CANNOT MOVE". PATIENT STATED " THE PUT ME OUT IN THE DESERT". UPON FACE TO FACE EVALUATION, PATIENT IS AWAKE, ALERT X1, DISORGANIZED THOUGHT PROCESS, DISORIENTED, PREOCCUPIED TO HIS OWN THOUGHTS . VITALS SIGNS CHECKED AND RECORDED. AFEBRILE. BELONGINGS INVENTORIED AND CHECKED FOR CONTRABAND. PATIENT IS UNDER THE PSYCHIATRIC CARE OF NEREYDA ORDERS OBTAINED, AND UNDER THE MEDICAL CARE OF DR. INMAN. CALLED [facility] DOCTOR AND SPOKE TO MARLENE REYNA AND NOTIFIED OF PATIENT'S ADMISSION, MED RECON DONE. SKIN BODY ASSESSMENT DONE. BED LOCKED AND PLACED ON LOWEST POSITION. ON 1:1 SITTER AT BEDSIDE FOR SAFETY. WILL CONTINUE TO MONITOR [id number] FOR SAFETY AND BEHAVIOR. 22:30 - RECEIVED A CALL FROM MARLENE REYNA TO TRANSFER PATIENT TO MED-SURG DUE TO LAB RESULTS OF CREATININE 2.6 ACCORDING TO HER PATIENT HAS ACUTE RENAL FAILURE. 22:32- DR. DAWN INFORMED, WITH ORDERS TO CONTINUE SAME ORDERS. 22:35 - SPOKE TO CHARGE NURSE CHANTE TO TRANSFER PATIENT TO MED SURG UNIT PER MARLENE REYNA'S ORDER DUE TO ABNORMAL LABS RESULTS WITH DX OF ARF NURSE INFORMATION SERVICES TECH BEAN NOTIFIED OF PATIENT'S TRANSFER. ORIGINAL HOLD 5150 GIVEN TO CHANTE CHARGE NURSE. PATIENT LEFT IN THE UNIT IN STABLE CONDITION, NO ACUTE DISTRESS NOTED, NO BEHAVIORAL PROBLEMS NOTED AT THIS TIME.
[~2017-04-22 19:49] MED LIST: ACET-868 PO; ASCO500T9 PO; BENZ1TAB7 PO; BISA10SU8 RC; Boost Plus Food-Vanilla PO; GABA100C PO; LACT1CAP72 PO; MAGN400O6 PO; MULT-447 PO; NUTR1PAC14 PO; POLY17PO4 PO; POVI3780 TP; RIVA1PAT12 TD; SENN-167 PO; SULF1TAB48 PO; VITA56.7 TP; ZINC220C8 PO
[2017-04-22] MEDS ORDERED: TEMAZEPAM 7.5 MG CAPSULE PO PRN (20:30)
[2017-04-22] MEDS ORDERED: LORAZEPAM 0.5 MG TABLET PO PRN (20:30)
[2017-04-22] MEDS ORDERED: MAGNESIUM HYDROXIDE 30 ML UDC PO PRN (20:30)
[2017-04-22] MEDS ORDERED: ACETAMINOPHEN 325 MG TABLET PO PRN ×2 (20:30→22:00)
[2017-04-22] MEDS ORDERED: MAG HYDROX/AL HYDROX/SIMETH 30 ML UDC PO PRN (20:30)
[2017-04-22 20:52] VITALS: BP 128/85
[2017-04-23] MEDS ORDERED: [UNRECOGNIZED DRUG - OTHER] PO SCH (08:00)
[2017-04-23] MEDS ORDERED: BENZTROPINE MESYLATE (1 MG) 1 MG TABLET PO SCH (08:00)
[2017-04-23] MEDS ORDERED: GABAPENTIN 100 MG CAPSULE PO SCH (08:00)
[2017-04-23] MEDS ORDERED: ASCORBIC ACID 500 MG TABLET PO SCH (09:00)
[2017-04-23] MEDS ORDERED: Medication Not On Formulary EA (Arginine/Glutamine/Calcium Hmb (Juven Packet) 1 EACH) PO SCH (09:00)
[2017-04-23] MEDS ORDERED: ZINC SULFATE 220 MG CAPSULE PO SCH (09:00)
[2017-04-23] MEDS ORDERED: SULFAMETH/TRIMETH 800/160 MG 1 UDTAB TABLET PO SCH (09:00)
[2017-04-23] MEDS ORDERED: VITAMINS A AND D 56.7 GM TUBE TP SCH (09:00)
[2017-04-23] MEDS ORDERED: RIVASTIGMINE TD SCH (09:00)
[2017-04-23] MEDS ORDERED: LACTOBACILLUS RHAMNOSUS GG 1 EACH CAP.SPRINK PO SCH (09:00)
[2017-04-23] MEDS ORDERED: SENNOSIDES 8.6 MG TABLET PO SCH (09:00)
[2017-04-23] MEDS ORDERED: Medication Not On Formulary EA (Multivitamin With Minerals (One Daily Complete) 1 EACH) PO SCH (09:00)
== END 2017-04-22 23:10 | disposition short-term general hospital (02) | DRG 885 ==
LOC: GPS 19:49
PROVIDERS: ADMIT Psychiatry & Neurology Psychosomatic Medicine; ATTEND Internal Medicine
DX: F29 Unspecified psychosis not due to a substance or known physiological condition (principal); N17.9 Acute kidney failure, unspecified

== ENCOUNTER 2017-04-22 23:42 | Inpatient (IN) | payer MEDICARE, OTHER ==
[~2017-04-22] VITALS: Ht 175.3 cm; Wt 70.8 kg
[2017-04-22 23:15] VITALS: BP 119/82
--- NOTE | 2017-04-22 23:15 | NUR ---
MS RN NOTES RECEIVED PT FROM GPS, PT IS AWAKE, A/O X1. VERBALLY RESPONSIVE. NO DISTRESS, NO SOB NOTED. RESPIRATION IS EVEN AND UNLABORED. NO C/O PAIN OR DISCOMFORT AT THIS TIME. SAFETY PRECAUTIONS OBSERVED. SKIN CHECK DONE. PT ON 1: 1 SITTER. BED ON LOWEST LEVEL. CALL LIGHT WITHIN REACH. WILL CONTINUE TO MONITOR. AWAITING FOR ADMISSION ORDERS FROM CODEY REYNA.
--- NOTE | 2017-04-23 00:30 | NUR ---
INSERTED IV ON LEFT WRIST G # 20, WITH GOOD VENOUS RETURN. PT SANCHEZ WELL.
[2017-04-23] MEDS ORDERED: HYDROCODONE/APAP 5/325MG 1 EACH TABLET PO PRN (02:00)
[2017-04-23] MEDS ORDERED: ZOLPIDEM TARTRATE 5 MG TABLET PO PRN (02:00)
[2017-04-23] MEDS ORDERED: MAG HYDROX/AL HYDROX/SIMETH 30 ML UDC PO PRN (02:00)
[2017-04-23] MEDS ORDERED: ONDANSETRON HCL/PF 4 MG/2 ML VIAL IVP PRN (02:00)
[2017-04-23] MEDS ORDERED: ACETAMINOPHEN 325 MG TABLET PO PRN (02:00)
[2017-04-23] MEDS ORDERED: PIPERACILLIN /TAZOBACTAM 3.375 G in IV D5W 100 ML IV ONE (02:30)
[2017-04-23] MEDS ORDERED: PIPERACILLIN /TAZOBACTAM 3.375 G VIAL IV ONE (02:43)
[2017-04-23] MEDS: IV NS 0.9% 1,000 ML IV PRN ×2 (03:05→17:11)
[2017-04-23 06:38] LABS: BASOPHILS % (AUTO) 0.1 % (0.0-2.0); HEMATOCRIT 39 % (39-51); HEMOGLOBIN 13.3 g/dL (13.5-17.5); LYMPHOCYTES # (AUTO) 0.6 /CMM (0.8-4.8); LYMPHOCYTES % (AUTO) 3.4 % (20.0-44.0); MEAN CORPUSCULAR HEMOGLOBIN 32 PG (26.0-33.0); MEAN CORPUSCULAR HGB CONC 34 g/dl (31.0-36.0); MEAN CORPUSCULAR VOLUME 93 fL (80-96); MONOCYTES # (AUTO) 0.2 /CMM (0.1-1.30); MONOCYTES % (AUTO) 0.8 % (2.0-12.0); NEUTROPHILS # (AUTO) 17.7 /CMM (1.8-8.9); NEUTROPHILS % (AUTO) 95.7 % (43.0-81.0); PLATELET COUNT (AUTO) 152 /CMM (150-450); RDW COEFFICIENT OF VARIATION 14.7 (11.5-15.0); RED BLOOD CELL COUNT(AUTO) 4.18 MIL/uL (4.5-6.0); WHITE BLOOD COUNT (AUTO) 18.5 K/uL (4.3-11.0)
--- NOTE | 2017-04-23 06:55 | NUR ---
MS RN NOTES PT IS RESTING COMFORTABLY AT THIS TIME, , A/O X1. VERBALLY RESPONSIVE. NO DISTRESS, NO SOB NOTED. RESPIRATION IS EVEN AND UNLABORED. NO C/O PAIN OR DISCOMFORT AT THIS TIME. SAFETY PRECAUTIONS OBSERVED. ALL DUE MEDS GIVEN, PT ON 1: 1 SITTER. BED ON LOWEST LEVEL. CALL LIGHT WITHIN REACH. IV SITE ON LEFT WRIST G 2O INTACT AND PATENT, IVF INFUSING WELL. WILL ENDORSE TO NEXT SHIFT FOR ZAIDA.
[2017-04-23 07:01] LABS: CALCIUM, SERUM 8.5 mg/dL (8.5-10.1); CREATININE 4.1 mg/dL (0.6-1.3); MAGNESIUM 2.3 mg/dL (1.8-2.4); PHOSPHORUS 4.6 mg/dL (2.5-4.9); POTASSIUM 3.4 mmol/L (3.5-5.1)
[2017-04-23 08:00] VITALS: BP 135/83
[2017-04-23] MEDS: VITAMINS A AND D 56.7 GM TUBE TP SCH (09:00)
[2017-04-23] MEDS: ZINC SULFATE 220 MG CAPSULE PO SCH (09:14)
[2017-04-23] MEDS: LACTOBACILLUS RHAMNOSUS GG 1 EACH CAP.SPRINK PO SCH ×2 (09:14→17:11)
[2017-04-23] MEDS: MULTIVIT, IRON, MIN NO. 8, FA 1 TAB PO SCH (09:14)
[2017-04-23] MEDS: ASCORBIC ACID 500 MG TABLET PO SCH (09:14)
[2017-04-23] MEDS: BOOST PLUS FOOD-VANILLA 237 ML BOX PO SCH ×2 (09:14→17:11)
[2017-04-23] MEDS: HEPARIN SODIUM, PORCINE 5000 UNITS/1 ML VIAL SQ SCH ×2 (09:15→21:08)
[2017-04-23] MEDS: BENZTROPINE MESYLATE (1 MG) 1 MG TABLET PO SCH ×3 (09:16→17:11)
[2017-04-23] MEDS: PIPERACILLIN /TAZOBACTAM 2.25 G in IV NS 0.9% 50 ML IV SCH ×2 (12:31→21:06)
[2017-04-23 12:44] LABS: APPEARANCE,URINE CLEAR (CLEAR); BILIRUBIN,URINE NEGATIVE (NEGATIVE); BLOOD, URINE 1+ Ery/uL (NEGATIVE); COLOR,URINE YELLOW (YELLOW); KETONES,URINE NEGATIVE (NEGATIVE); LEUKOCYTE ESTERASE ,URINE NEGATIVE (NEGATIVE); NITRITE, URINE NEGATIVE (NEGATIVE); PH,URINE 5.5 (5.0-8.0); PROTEIN,URINE NEGATIVE (NEGATIVE); UGLUCOSE NEGATIVE (NEGATIVE); UROBILINOGEN,URINE 0.2 EU/dL (0.2)
[2017-04-23 12:52] LABS: BACTERIA,URINE None seen /HPF (None Seen); SQUAMOUS EPITHELIAL CELL,UR 0-2 /HPF (None Seen); WBC,URINE 0-2 /HPF (0-3)
[2017-04-23] MEDS ORDERED: PIPERACILLIN /TAZOBACTAM 3.375 G in IV D5W 100 ML IV SCH (13:00)
[2017-04-23 13:42] LABS: EOSINOPHIL,URINE None Seen
[2017-04-23 14:12] LABS: CREATININE, URINE 65.1 MG/DL (30.0-125.0); URINE TOTAL PROTEIN 34.2 mg/dL (0-11.9)
[2017-04-23] MEDS: GABAPENTIN 100 MG CAPSULE PO SCH ×2 (14:20→17:11)
[2017-04-23 16:00] VITALS: BP 126/73
--- NOTE | 2017-04-23 19:22 | NUR ---
M/S RN - Notes Patient awake, alert to self, denies pain, remain afebrile, no apparent distress, tolerating room air. IVF infusing well on the left wrist with no s/s of infiltration. Skin assessment done and documented, wound treatment done, assisted with repositioning q2h for skin management. Sitter at bedside for safety. [address] Powers. All needs anticipated and met. Fall and aspiration precautions maintained. Will continue with current medical management.
--- NOTE | 2017-04-23 19:30 | NUR ---
MS RN NOTES RECEIVED PT IN BED, AWAKE, A/O X 1. VERBALLY RESPONSIVE. NO DISTRESS NOR SOB NOTED. RESPIRATION IS EVEN AND UNLABORED. SITTER AT BEDSIDE FOR SAFETY . PT WITH MULTIPLE ATTEMPTS OF TRYING TO GET OUT OF THE BED. IV SITE ON LEFT WRIST INTACT AND PATENT, IVF INFUSING WELL. SECURED PROPERLY AND WRAPPED WITH KERLIX, PT WITH MULTIPLE ATTEMPTS OF PULLING OUT IV LINE. NO S/S OF PAIN OR DISCOMFORT AT THIS TIME. ON 1:1 SITTER FOR SAFETY. SAFETY PRECAUTIONS OBSERVED. ALL NEEDS ATTENDED AND MET. CALL LIGHT WITHIN REACH. WILL CONTINUE TO MONITOR.
[2017-04-23 20:00] VITALS: BP 128/75
--- NOTE | 2017-04-23 20:29 | NUR ---
Patient was transferred from [facility] due to worsening kidney function. Prior to hospitalization, patient resides at [facility] [phone]. Awaiting clinical medical transcriptionist input and plan of care. Addendum: 04/23/17 at 2053 by ASIYA MOLINA RN Amended: Links added.
--- NOTE | 2017-04-24 02:00 | NUR ---
RECEIVED AN ORDER FROM CODEY REYNA TO CONT ATIVAN AND RESTORIL PRN FROM DR. DAWN'S ORDER FROM GPS AND STAR [facility]BI, WITH N.O NOTED AND CARRIED OUT.
[2017-04-24] MEDS ORDERED: TEMAZEPAM 7.5 MG CAPSULE PO PRN (03:00)
[2017-04-24] MEDS ORDERED: LORAZEPAM 0.5 MG TABLET PO PRN (03:00)
[2017-04-24] MEDS: PIPERACILLIN /TAZOBACTAM 2.25 G in IV NS 0.9% 50 ML IV SCH ×3 (04:20→21:17)
[2017-04-24 06:28] LABS: HEMATOCRIT 36 % (39-51); HEMOGLOBIN 12.7 g/dL (13.5-17.5); LYMPHOCYTES # (AUTO) 0.5 /CMM (0.8-4.8); LYMPHOCYTES % (AUTO) 4.5 % (20.0-44.0); MEAN CORPUSCULAR HEMOGLOBIN 32 PG (26.0-33.0); MEAN CORPUSCULAR HGB CONC 35 g/dl (31.0-36.0); MEAN CORPUSCULAR VOLUME 92 fL (80-96); MONOCYTES # (AUTO) 0.4 /CMM (0.1-1.30); NEUTROPHILS # (AUTO) 11.2 /CMM (1.8-8.9); NEUTROPHILS % (AUTO) 92.5 % (43.0-81.0); PLATELET COUNT (AUTO) 149 /CMM (150-450); RDW COEFFICIENT OF VARIATION 14.5 (11.5-15.0); RED BLOOD CELL COUNT(AUTO) 3.92 MIL/uL (4.5-6.0); WHITE BLOOD COUNT (AUTO) 12.1 K/uL (4.3-11.0)
[2017-04-24 06:29] LABS: ALBUMIN 1.8 g/dL (3.4-5.0); BILIRUBIN,TOTAL 1.2 mg/dL (0.2-1.0); CALCIUM, SERUM 8.2 mg/dL (8.5-10.1); CREATININE 2.3 mg/dL (0.6-1.3); MAGNESIUM 2.4 mg/dL (1.8-2.4); PHOSPHORUS 3.2 mg/dL (2.5-4.9); POTASSIUM 3.1 mmol/L (3.5-5.1); TOTAL PROTEIN, SERUM 6.5 g/dL (6.4-8.2)
[2017-04-24 06:30] LABS: APPEARANCE,URINE CLOUDY (CLEAR); BILIRUBIN,URINE NEGATIVE (NEGATIVE); BLOOD, URINE 3+ Ery/uL (NEGATIVE); COLOR,URINE YELLOW (YELLOW); KETONES,URINE NEGATIVE (NEGATIVE); LEUKOCYTE ESTERASE ,URINE NEGATIVE (NEGATIVE); NITRITE, URINE NEGATIVE (NEGATIVE); PH,URINE 5.5 (5.0-8.0); PROTEIN,URINE TRACE mg/dl (NEGATIVE); UGLUCOSE NEGATIVE (NEGATIVE)
[2017-04-24 07:02] LABS: CREATININE, URINE 79.7 MG/DL (30.0-125.0); URINE TOTAL PROTEIN 54.5 mg/dL (0-11.9)
[2017-04-24 07:03] LABS: BACTERIA,URINE Rare /HPF (None Seen); RBC,URINE TOO NUMEROUS TO COUN /HPF (0-2); SQUAMOUS EPITHELIAL CELL,UR Few /HPF (None Seen); WBC,URINE 0-2 /HPF (0-3)
--- NOTE | 2017-04-24 07:10 | NUR ---
MS RN NOTES PT IN BED, RESTING AT THIS TIME, AROUSES EASILY. A/O X 1. VERBALLY RESPONSIVE. NO DISTRESS NOR SOB NOTED. RESPIRATION IS EVEN AND UNLABORED. SITTER AT BEDSIDE FOR SAFETY . PT WITH MULTIPLE ATTEMPTS OF TRYING TO GET OUT OF THE BED. IV SITE ON LEFT WRIST INTACT AND PATENT, IVF INFUSING WELL. SECURED PROPERLY AND WRAPPED WITH KERLIX. NO S/S OF PAIN OR DISCOMFORT AT THIS TIME. ON 1:1 SITTER FOR SAFETY. SAFETY PRECAUTIONS OBSERVED. ALL NEEDS ATTENDED AND MET. CALL LIGHT WITHIN REACH. WILL ENDORSE TO NEXT SHIFT FOR ZAIDA.
--- NOTE | 2017-04-24 07:30 | NUR ---
RN OPEN NOTES RECEIVED REPORT FROM DENTAL OFFICE COORDINATOR NURSE. PATIENT IS IN BED, AWAKE AND ALERT TO SELF ONLY. BED IN LOW POSITION, LOCKED AND TWO SIDE RAILS ARE UP. CALL LIGHT WITHIN REACH FOR SAFETY. 1:1 SITTER AT BEDSIDE. NO SIGNS AND SYMPTOMS OF DISTRESS. WILL CONTINUE TO MONITOR AND ASSESS PATIENT.
[2017-04-24 07:35] LABS: EOSINOPHIL,URINE None Seen
[2017-04-24] MEDS: VITAMINS A AND D 56.7 GM TUBE TP SCH (08:40)
[2017-04-24] MEDS: BENZTROPINE MESYLATE (1 MG) 1 MG TABLET PO SCH ×3 (08:40→16:46)
[2017-04-24] MEDS: ASCORBIC ACID 500 MG TABLET PO SCH (08:41)
[2017-04-24] MEDS: GABAPENTIN 100 MG CAPSULE PO SCH ×3 (08:41→16:46)
[2017-04-24] MEDS: MULTIVIT, IRON, MIN NO. 8, FA 1 TAB PO SCH (08:41)
[2017-04-24] MEDS: LACTOBACILLUS RHAMNOSUS GG 1 EACH CAP.SPRINK PO SCH ×2 (08:42→16:45)
[2017-04-24] MEDS: ZINC SULFATE 220 MG CAPSULE PO SCH (08:42)
[2017-04-24] MEDS: RIVASTIGMINE TARTRATE 4.6 MG PATCH.TD24 TD SCH (08:42)
[2017-04-24] MEDS: BOOST PLUS FOOD-VANILLA 237 ML BOX PO SCH ×2 (08:42→16:46)
[2017-04-24] MEDS: HEPARIN SODIUM, PORCINE 5000 UNITS/1 ML VIAL SQ SCH ×3 (08:45→21:20)
--- NOTE | 2017-04-24 10:56 | NUR ---
WOUND CARE CONSULT WOUND CARE RECEIVED CONSULT FOR LEFT LOWER LEG AND FOOT WOUNDS, RIGHT HEEL WOUND. WOUND CARE WILL DEFER CONSULT AND ALL TREATMENT PLANS TO SURGICAL TEAM WHO ARE CURRENTLY FOLLOWING. PATIENT WITH JUSTYN AT 11, ALL PRESSURE ULCER PREVENTION MEASURES ARE NOTED TO BE IN PLACE AT THIS TIME.
[2017-04-24] MEDS: Potassium Chloride 20 MEQ in IV D5W 1,000 ML IV PRN (12:06)
--- NOTE | 2017-04-24 15:52 | NUR ---
PATIENT PULLED ON HIS JACKSON. JACKSON IS DRAINING BLOOD. MD AWARE
--- NOTE | 2017-04-24 16:30 | NUR ---
PATIENT PULLED HIS IV.
--- NOTE | 2017-04-24 17:34 | NUR ---
NEW IV STARTED. DRESSING CHANGE COMPETED PER WOUND NURSE INSTRUCTION AND HOSPITAL PROTOCOL. PATIENT COMBATIVE DURING THE CHANGE.
--- NOTE | 2017-04-24 18:00 | NUR ---
MRSA NARES POSITIVE. PLACED PATIENT ON ISOLATION
--- NOTE | 2017-04-24 19:15 | NUR ---
MS RN NOTES RECEIVED PT IN BED, AWAKE, A/O X 1. VERBALLY RESPONSIVE. NO DISTRESS NOR SOB NOTED. RESPIRATION IS EVEN AND UNLABORED. SITTER AT BEDSIDE FOR SAFETY . PT WITH MULTIPLE ATTEMPTS OF TRYING TO GET OUT OF THE BED. IV SITE ON LFA INTACT AND PATENT, IVF INFUSING WELL. SECURED PROPERLY AND WRAPPED WITH KERLIX, PT WITH MULTIPLE ATTEMPTS OF PULLING OUT IV LINE AND F/C. DESPITE FREQUENT REORIENTATION AND REMINDER. FC INTACT AND PATENT DRAINING WELL WITH YELLOW URINE. PT WITH ON AND EPISODES OF HITTING STAFF AND SCREAMING. NO S/S OF PAIN OR DISCOMFORT AT THIS TIME. ON 1:1 SITTER FOR SAFETY. SAFETY PRECAUTIONS OBSERVED. ALL NEEDS ATTENDED AND MET. CALL LIGHT WITHIN REACH. WILL CONTINUE TO MONITOR.
--- NOTE | 2017-04-24 19:40 | NUR ---
RN CLOSING NOTES REPORT GAVE TO EARLY CHILDHOOD EDUCATION INSTRUCTOR NURSE FOR ZAIDA. PATIENT KEPT CLEAN AND DRY AND SAFE. NO NEW CONCERNS DURING THE SHIFT. BED IN LOW POSITION, LOCKED AND TWO SIDE RAILS ARE UP. CALL LIGHT WITHIN REACH FOR SAFETY.
[2017-04-24 20:00] VITALS: BP 125/90
[2017-04-24] MEDS: TAMSULOSIN 0.4 MG CAP.SR.24H PO SCH (21:23)
[2017-04-24] MEDS ORDERED: MUPIROCIN OINT 2% 22 GM TUBE ONE (23:00)
[2017-04-25] MEDS ORDERED: MUPIROCIN OINT 2% 22 GM TUBE ONE (00:31)
[2017-04-25 04:00] VITALS: BP 156/103
[2017-04-25] MEDS: PIPERACILLIN /TAZOBACTAM 2.25 G in IV NS 0.9% 50 ML IV SCH ×3 (04:52→22:21)
[2017-04-25] MEDS: Potassium Chloride 20 MEQ in IV D5W 1,000 ML IV PRN ×2 (05:17→22:21)
--- NOTE | 2017-04-25 06:24 | NUR ---
PT IS ON HAS AN ORDER FOR 1:1 SITTER, PT IS VERY AGITATED , TRYING TO GET OUT OF THE BED, CONFUSED AND HAD MULTIPLE ATTEMPTS AND EPISODE OF PULLING OUT IV AND JACKSON CATHETER, PER NURSING ACCOUNT ANALYST VASQUEZ, STILL FINDING FOR A SITTER FIR AM SHIFT, INFORMED CODEY REYNA NP WITH N.O FOR ACUTE MEDICAL RESTRAINT WHILE THE SITTER IS NOT AVAILABLE, WITH N.O NOTED AND CARRIED OUT.
[2017-04-25 06:30] LABS: CALCIUM, SERUM 8.1 mg/dL (8.5-10.1); CREATININE 1.4 mg/dL (0.6-1.3); POTASSIUM 3.2 mmol/L (3.5-5.1)
[2017-04-25 06:33] LABS: EOSINOPHILS % (AUTO) 0.3 % (0.0-6.0); HEMATOCRIT 35 % (39-51); HEMOGLOBIN 12.3 g/dL (13.5-17.5); LYMPHOCYTES # (AUTO) 0.5 /CMM (0.8-4.8); MEAN CORPUSCULAR HEMOGLOBIN 32 PG (26.0-33.0); MEAN CORPUSCULAR HGB CONC 35 g/dl (31.0-36.0); MEAN CORPUSCULAR VOLUME 93 fL (80-96); MONOCYTES # (AUTO) 0.5 /CMM (0.1-1.30); MONOCYTES % (AUTO) 4.5 % (2.0-12.0); NEUTROPHILS # (AUTO) 10.4 /CMM (1.8-8.9); NEUTROPHILS % (AUTO) 91.2 % (43.0-81.0); PLATELET COUNT (AUTO) 145 /CMM (150-450); RDW COEFFICIENT OF VARIATION 14.2 (11.5-15.0); RED BLOOD CELL COUNT(AUTO) 3.79 MIL/uL (4.5-6.0); WHITE BLOOD COUNT (AUTO) 11.4 K/uL (4.3-11.0)
--- NOTE | 2017-04-25 06:43 | NUR ---
MS RN NOTES PT IN BED, AWAKE, A/O X 1. VERBALLY RESPONSIVE. NO DISTRESS NOR SOB NOTED. RESPIRATION IS EVEN AND UNLABORED. SITTER AT BEDSIDE FOR SAFETY. PT WITH MULTIPLE ATTEMPTS OF TRYING TO GET OUT OF THE BED. IV SITE ON LFA INTACT AND PATENT, IVF INFUSING WELL. SECURED PROPERLY. FREQUENT REORIENTATION DONE. PT WITH ON AND OFF EPISODE OF AGITATION. FC SECURED, INTACT AND PATENT DRAINING WELL WITH YELLOW URINE. NO S/S OF PAIN OR DISCOMFORT AT THIS TIME. ON 1:1 SITTER FOR SAFETY. SAFETY PRECAUTIONS OBSERVED. ALL NEEDS ATTENDED AND MET. CALL LIGHT WITHIN REACH. WILL ENDORSE TO NEXT SHIFT FOR ZAIDA.
--- NOTE | 2017-04-25 06:50 | NUR ---
RECEIVED A CALL FROM LAB, NA : [phone] , ENDORSED TO DAY SHIFT ACCORDINGLY.
--- NOTE | 2017-04-25 07:30 | NUR ---
AM RN NOTE Received patient sleeping comfortably in his bed, cont with donna arms soft restraints. No acute distress noted. Continue on IV fluids. Will continue to monitor.
[2017-04-25 08:00] VITALS: BP 137/110
[2017-04-25] MEDS: GABAPENTIN 100 MG CAPSULE PO SCH ×3 (08:00→17:06)
[2017-04-25] MEDS: BENZTROPINE MESYLATE (1 MG) 1 MG TABLET PO SCH ×3 (08:00→17:06)
[2017-04-25] MEDS: BOOST PLUS FOOD-VANILLA 237 ML BOX PO SCH ×2 (08:00→17:00)
[2017-04-25] MEDS: HEPARIN SODIUM, PORCINE 5000 UNITS/1 ML VIAL SQ SCH ×2 (08:20→22:22)
[2017-04-25] MEDS: MUPIROCIN OINT 2% 22 GM TUBE SCH ×2 (08:23→22:21)
[2017-04-25] MEDS: RIVASTIGMINE TARTRATE 4.6 MG PATCH.TD24 TD SCH (08:23)
[2017-04-25] MEDS: ASCORBIC ACID 500 MG TABLET PO SCH (08:24)
[2017-04-25] MEDS: ZINC SULFATE 220 MG CAPSULE PO SCH (08:24)
[2017-04-25] MEDS: LACTOBACILLUS RHAMNOSUS GG 1 EACH CAP.SPRINK PO SCH ×2 (08:24→17:00)
[2017-04-25] MEDS: VITAMINS A AND D 56.7 GM TUBE TP SCH (08:24)
[2017-04-25] MEDS: MULTIVIT, IRON, MIN NO. 8, FA 1 TAB PO SCH (08:24)
[2017-04-25] MEDS ORDERED: POTASSIUM CHLORIDE 20 MEQ TAB.PRT.SR PO SCH (11:30)
--- NOTE | 2017-04-25 11:37 | NUR ---
AM RN NOTE NA 156 RESULTS NOTIFIED TO SHALONDA ROSARIO WITH N.O AND SHALONDA ROSARIO MADE THAT PT REFUSED HIS PO MEDS THIS AM WITH NNO.
--- NOTE | 2017-04-25 15:57 | NUR ---
AM RN NOTE Pt pulled out his IV, re-inserted new site on RFA #22.
--- NOTE | 2017-04-25 19:03 | NUR ---
AM RN NOTE Pt awake lying in his bed, noted that he pulled out his IV even with donna wrist restraints on. F/C intact. Will endorse to next shift to re-insert.
--- NOTE | 2017-04-25 19:20 | NUR ---
MS/RN OPENING NOTES PT RECEIVED RESTING COMFORTABLY IN BED. SITTER AT BEDSIDE. ON ROOM AIR, BREATHING EVEN AND AND UNLABORED. NO S/S OF SOB OR PAIN NOTED. PT APPEARS COMFORTABLE. JACKSON IN PLACE AND DRAINING TO GRAVITY. PT PULLED OUT IV, NO IV ACCESS AT THIS TIME. BED IN LOW/LOCKED POSITION WITH CALL LIGHT IN REACH, SIDE RAILS UPX2. WILL CONTINUE TO MONITOR.
[2017-04-25 20:00] VITALS: BP 151/99
[2017-04-25] MEDS: TAMSULOSIN 0.4 MG CAP.SR.24H PO SCH (22:21)
[2017-04-26 04:00] VITALS: BP 144/86
[2017-04-26] MEDS: PIPERACILLIN /TAZOBACTAM 2.25 G in IV NS 0.9% 50 ML IV SCH (05:39)
[2017-04-26 06:56] LABS: CALCIUM, SERUM 8.4 mg/dL (8.5-10.1); CREATININE 1.3 mg/dL (0.6-1.3); POTASSIUM 3.1 mmol/L (3.5-5.1)
[2017-04-26 07:10] LABS: HEMATOCRIT 34 % (39-51); HEMOGLOBIN 11.8 g/dL (13.5-17.5); LYMPHOCYTES # (AUTO) 0.5 /CMM (0.8-4.8); LYMPHOCYTES % (AUTO) 4.4 % (20.0-44.0); MEAN CORPUSCULAR HEMOGLOBIN 32 PG (26.0-33.0); MEAN CORPUSCULAR HGB CONC 35 g/dl (31.0-36.0); MEAN CORPUSCULAR VOLUME 92 fL (80-96); MONOCYTES # (AUTO) 0.5 /CMM (0.1-1.30); MONOCYTES % (AUTO) 3.9 % (2.0-12.0); NEUTROPHILS # (AUTO) 11.3 /CMM (1.8-8.9); NEUTROPHILS % (AUTO) 91.7 % (43.0-81.0); PLATELET COUNT (AUTO) 153 /CMM (150-450); RDW COEFFICIENT OF VARIATION 13.9 (11.5-15.0); RED BLOOD CELL COUNT(AUTO) 3.67 MIL/uL (4.5-6.0); WHITE BLOOD COUNT (AUTO) 12.4 K/uL (4.3-11.0)
--- NOTE | 2017-04-26 07:30 | NUR ---
RN MS NOTES PT IN BED, ASLEEP, EASY TO AROUSE, ALERT TO SELF, CALM AT THIS TIME, OFFERED TO EAT BUT PT REFUSES AT THIS TIME, WILL CONTINUE TO OFFER FOOD, ON LOW BED FOR SAFETY, IV FLUIDS INFUSING WELL, ALL NEEDS ATTENDED.
--- NOTE | 2017-04-26 07:41 | NUR ---
MS/RN CLOSING NOTES PT RECEIVED RESTING IN BED. SITTER UNAVAILABLE FOR TODAY. BILATERAL SOFT WRIST RESTRAINTS ORDERED, PT BECOMING AGITATED, ATTEMPTING TO PULL. ON ROOM AIR, BREATHING EVEN AND AND UNLABORED. NO S/S OF SOB OR PAIN NOTED. JACKSON IN PLACE AND DRAINING TO GRAVITY. IV TO RFA RUNNING IVF ORDERED. BED IN LOW/LOCKED POSITION WITH CALL LIGHT IN REACH, SIDE RAILS UPX3 WITH BED ALARM ON. ENDORSED TO DAY SHIFT RN ZAIDA.
[2017-04-26 08:00] VITALS: BP 148/89
[2017-04-26] MEDS: MUPIROCIN OINT 2% 22 GM TUBE SCH ×2 (09:45→22:31)
[2017-04-26] MEDS: ZINC SULFATE 220 MG CAPSULE PO SCH (09:45)
[2017-04-26] MEDS: VITAMINS A AND D 56.7 GM TUBE TP SCH (09:45)
[2017-04-26] MEDS: GABAPENTIN 100 MG CAPSULE PO SCH ×3 (09:45→18:37)
[2017-04-26] MEDS: BOOST PLUS FOOD-VANILLA 237 ML BOX PO SCH ×2 (09:45→17:51)
[2017-04-26] MEDS: LACTOBACILLUS RHAMNOSUS GG 1 EACH CAP.SPRINK PO SCH ×2 (09:46→17:51)
[2017-04-26] MEDS: MULTIVIT, IRON, MIN NO. 8, FA 1 TAB PO SCH (09:46)
[2017-04-26] MEDS: BENZTROPINE MESYLATE (1 MG) 1 MG TABLET PO SCH ×3 (09:46→18:37)
[2017-04-26] MEDS: RIVASTIGMINE TARTRATE 4.6 MG PATCH.TD24 TD SCH (09:46)
[2017-04-26] MEDS: ASCORBIC ACID 500 MG TABLET PO SCH (09:46)
[2017-04-26] MEDS: HEPARIN SODIUM, PORCINE 5000 UNITS/1 ML VIAL SQ SCH ×2 (09:47→22:29)
[2017-04-26] MEDS ORDERED: POTASSIUM CHLORIDE 20 MEQ TAB.PRT.SR PO ONE ×2 (11:00→11:30)
[2017-04-26] MEDS: PIPERACILLIN /TAZOBACTAM 3.375 G in IV D5W 50 ML IV SCH ×2 (12:00→17:51)
--- NOTE | 2017-04-26 13:00 | NUR ---
RN MS NOTES PT IN BED, ASLEEP, EASY TO AROUSE, ALERT TO SELF, WITH CONFUSION, SAFETY PRECAUTIONS OBSERVED, HOURLY ROUNDING DONE, ASSISTED WITH MEALS, IV FLUIDS INFUSING WELL, KEPT CLEAN, DRY AND COMFORTABLE.
[2017-04-26] MEDS: Potassium Chloride 40 MEQ in IV D5W 1,000 ML IV PRN (15:27)
[2017-04-26 16:00] VITALS: BP 140/71
[2017-04-26] MEDS ORDERED: FEE PK DOSING 1 MIN EA MC ONE (17:28)
--- NOTE | 2017-04-26 18:30 | NUR ---
RN MS NOTES PT IN BED, ALERT TO SELF, WITH CONFUSION, ASSISTED WITH MEALS, PM MEDS GIVEN ORDERED, WOUND TREATMENT AND DRESSING CHANGE DONE, KEPT CLEAN AND DRY, BILATERAL WRIST RESTRAINTS ON, PT STILL ATTEMPTING TO PULL OUT TUBES, PM CARE PROVIDED.
--- NOTE | 2017-04-26 19:45 | NUR ---
RN OPENING NOTES RECEIVED REPORT FROM ASHLEYIADEVAN CARRILLO. FOUND Pt ASLEEP, RESTING IN BED. Pt IS A/OX1, CONFUSED. SOPHIA SOFT RESTRAINTS ON. Pt IS TRYING TO PULL OUT JACKSON. JACKSON CATHETER STILL IN PLACE. IV ACCESS ON LFA #22G IVF D5W @40MEQ KCL @100ML/HR. RHAND #20G,SL. RFA #22G,SL. SAFETY MEASURES IN PLACE. BED LOW, LOCKED, HOB ELEVATED, SIDE RAILS UP, CALL LIGHT AND BEDSIDE TABLE WITHIN REACH. WILL CONTINUE TO MONITOR Pt THROUGHOUT THE NIGHT FOR SAFETY.
[2017-04-26 20:00] VITALS: BP 120/96
[2017-04-26] MEDS: VANCOMYCIN 0.75 GM in IV NS 0.9% 250 ML IV SCH (22:28)
[2017-04-26] MEDS: TAMSULOSIN 0.4 MG CAP.SR.24H PO SCH (22:28)
[2017-04-27] MEDS: PIPERACILLIN /TAZOBACTAM 3.375 G in IV D5W 50 ML IV SCH ×4 (01:47→17:27)
[2017-04-27] MEDS: VANCOMYCIN 0.75 GM in IV NS 0.9% 250 ML IV SCH ×2 (05:49→19:25)
[2017-04-27 06:43] LABS: HEMATOCRIT 36 % (39-51); HEMOGLOBIN 12.4 g/dL (13.5-17.5); LYMPHOCYTES # (AUTO) 1.1 /CMM (0.8-4.8); LYMPHOCYTES % (AUTO) 7.3 % (20.0-44.0); MEAN CORPUSCULAR HEMOGLOBIN 32 PG (26.0-33.0); MEAN CORPUSCULAR HGB CONC 34 g/dl (31.0-36.0); MEAN CORPUSCULAR VOLUME 92 fL (80-96); MONOCYTES # (AUTO) 0.1 /CMM (0.1-1.30); NEUTROPHILS # (AUTO) 13.1 /CMM (1.8-8.9); NEUTROPHILS % (AUTO) 91.7 % (43.0-81.0); PLATELET COUNT (AUTO) 189 /CMM (150-450); RDW COEFFICIENT OF VARIATION 13.9 (11.5-15.0); RED BLOOD CELL COUNT(AUTO) 3.93 MIL/uL (4.5-6.0); WHITE BLOOD COUNT (AUTO) 14.3 K/uL (4.3-11.0)
--- NOTE | 2017-04-27 06:45 | NUR ---
RN CLOSING NOTES NO SIGNIFICANT CHANGES IN Pt's CONDITION. Pt IN STABLE CONDITION AT THIS TIME. VS STABLE. NO S/S OF ACUTE DISTRESS OR SOB NOTED DURING THE NIGHT. ALL NEEDS MET AND ATTENDED TO. SAFETY MEASURES IN PLACE. WILL ENDORSE TO DAYSHIFT RN FOR Pt's ZAIDA.
[2017-04-27 07:12] LABS: *SPE A/G RATIO 0.7 (0.7-1.7); *SPE ALBUMIN 2.2 g/dL (2.9-4.4); *SPE ALPHA-1-GLOBULIN 0.4 g/dL (0.0-0.4); *SPE ALPHA-2-GLOBULIN 0.8 g/dL (0.4-1.0); *SPE BETA GLOBULIN 0.7 g/dL (0.7-1.3); *SPE GLOBULIN, TOTAL 3.3 g/dL (2.2-3.9); *SPE M-SPIKE 0.3 g/dL (Not Observed); *SPEGAMMA GLOBULIN 1.4 g/dL (0.4-1.8)
[2017-04-27 07:44] LABS: BAND % (MANUAL) 3 % (0.0-5.0); LYMPHOCYTES % (MANUAL) 7 % (16-48); MONOCYTES % (MANUAL) 4 % (0-11.0); NEUTROPHILS % (MANUAL) 86 (42-76)
--- NOTE | 2017-04-27 08:00 | NUR ---
MS RN NOTES PATIENT IN BED RESTING NO SOB OR ACUTE DISTRESS NOTED. BED IN LOW LOCKED POSITION CALL LIGHT WITHIN REACH. SITTER AT BEDSIDE WILL CONTINUE TO MONITOR PERIPHERAL IV INTACT PATENT.
[2017-04-27 09:13] LABS: CREATININE 1.4 mg/dL (0.6-1.3); MAGNESIUM 2.2 mg/dL (1.8-2.4); PHOSPHORUS 2.5 mg/dL (2.5-4.9); POTASSIUM 3.6 mmol/L (3.5-5.1)
[2017-04-27] MEDS: MULTIVIT, IRON, MIN NO. 8, FA 1 TAB PO SCH (09:36)
[2017-04-27] MEDS: ASCORBIC ACID 500 MG TABLET PO SCH (09:36)
[2017-04-27] MEDS: ZINC SULFATE 220 MG CAPSULE PO SCH (09:36)
[2017-04-27] MEDS: LACTOBACILLUS RHAMNOSUS GG 1 EACH CAP.SPRINK PO SCH ×2 (09:36→17:24)
[2017-04-27] MEDS: RIVASTIGMINE TARTRATE 4.6 MG PATCH.TD24 TD SCH (09:36)
[2017-04-27] MEDS: MUPIROCIN OINT 2% 22 GM TUBE SCH ×2 (09:37→21:13)
[2017-04-27] MEDS: VITAMINS A AND D 56.7 GM TUBE TP SCH (09:37)
[2017-04-27] MEDS: GABAPENTIN 100 MG CAPSULE PO SCH ×3 (09:39→17:24)
[2017-04-27] MEDS: BENZTROPINE MESYLATE (1 MG) 1 MG TABLET PO SCH ×3 (09:39→17:24)
[2017-04-27] MEDS: HEPARIN SODIUM, PORCINE 5000 UNITS/1 ML VIAL SQ SCH ×2 (09:41→21:11)
[2017-04-27] MEDS: BOOST PLUS FOOD-VANILLA 237 ML BOX PO SCH ×2 (09:42→17:28)
[2017-04-27] MEDS: Potassium Chloride 40 MEQ in IV D5W 1,000 ML IV PRN ×2 (12:45→21:11)
--- NOTE | 2017-04-27 19:40 | NUR ---
MS RN NOTE: PATIENT RESTING IN BED, NO ACUTE DISTRESS NOTED. BREATHING EVEN AND UNLABORED, NO SOB NOTED. IV TO LFA AND RIGHT HAND IN PLACE. IV TO RFA IN PLACE, INFUSING D5W WITH 40MEQ KCL AT 120 ML/HR. JACKSON CATHETER IN PLACE, EMPTY AT THIS TIME, PER DAYSHIFT NURSE PATIENT HAD MIN OUTPUT, WILL TRY TO REPOSITION AND FLUSH. SITTER AT BEDSIDE. ISOLATION PRECAUTION OBSERVED. BED LOCKED AND IN LOWEST POSITION, CALL LIGHT IN REACH. WILL CONTINUE TO MONITOR.
--- NOTE | 2017-04-27 19:40 | NUR ---
MS RN NOTES PATIENT IN BED RESTING NO SOB OR ACUTE DISTRESS NOTED. ALL DUE MEDICATIONS ADMINISTERED. ALL NEEDS MET. WILL ENDORSE TO PM SHIFT ZAIDA.
[2017-04-27 20:00] VITALS: BP 138/86
[2017-04-27] MEDS: TAMSULOSIN 0.4 MG CAP.SR.24H PO SCH (21:11)
--- NOTE | 2017-04-27 21:30 | NUR ---
MS RN NOTE: PATIENT RESTLESS IN BED, ATIVAN 0.5MG 1 TAB ORAL GIVEN PER MD ORDER. WILL CONTINUE TO MONITOR.
[2017-04-28] MEDS: PIPERACILLIN /TAZOBACTAM 3.375 G in IV D5W 50 ML IV SCH ×5 (00:38→23:47)
[2017-04-28 06:46] LABS: EOSINOPHILS % (AUTO) 0.1 % (0.0-6.0); HEMATOCRIT 34 % (39-51); HEMOGLOBIN 11.8 g/dL (13.5-17.5); LYMPHOCYTES # (AUTO) 0.8 /CMM (0.8-4.8); MEAN CORPUSCULAR HEMOGLOBIN 32 PG (26.0-33.0); MEAN CORPUSCULAR HGB CONC 35 g/dl (31.0-36.0); MEAN CORPUSCULAR VOLUME 93 fL (80-96); MONOCYTES # (AUTO) 0.1 /CMM (0.1-1.30); MONOCYTES % (AUTO) 0.7 % (2.0-12.0); NEUTROPHILS # (AUTO) 15.2 /CMM (1.8-8.9); NEUTROPHILS % (AUTO) 94.2 % (43.0-81.0); PLATELET COUNT (AUTO) 156 /CMM (150-450); RDW COEFFICIENT OF VARIATION 14.3 (11.5-15.0); RED BLOOD CELL COUNT(AUTO) 3.65 MIL/uL (4.5-6.0); WHITE BLOOD COUNT (AUTO) 16.2 K/uL (4.3-11.0)
[2017-04-28] MEDS: VANCOMYCIN 0.75 GM in IV NS 0.9% 250 ML IV SCH (06:47)
[2017-04-28 06:58] LABS: CALCIUM, SERUM 8.3 mg/dL (8.5-10.1); CREATININE 1.4 mg/dL (0.6-1.3); MAGNESIUM 2.1 mg/dL (1.8-2.4); PHOSPHORUS 2.4 mg/dL (2.5-4.9); POTASSIUM 4.2 mmol/L (3.5-5.1)
--- NOTE | 2017-04-28 07:15 | NUR ---
MS RN NOTE: PATIENT RESTING IN BED, NO ACUTE DISTRESS NOTED. BREATHING EVEN AND UNLABORED, NO SOB NOTED. IV TO RIGHT HAND IN PLACE. IV TO RFA IN PLACE, INFUSING D5W WITH 40MEQ KCL AT 120 ML/HR. IV TO LFA REMOVED SINCE LEAKING, COVERED WITH GAUZE, PRESSURE APPLIED, SECURED WITH TAPE. JACKSON CATHETER IN PLACE. SITTER AT BEDSIDE. ISOLATION PRECAUTION OBSERVED. BED LOCKED AND IN LOWEST POSITION, CALL LIGHT IN REACH. WILL ENDORSE TO DAY NURSE TO CONTINUE WITH PLAN OF CARE.
[2017-04-28] MEDS: MULTIVIT, IRON, MIN NO. 8, FA 1 TAB PO SCH (08:49)
[2017-04-28] MEDS: ZINC SULFATE 220 MG CAPSULE PO SCH (08:49)
[2017-04-28] MEDS: BENZTROPINE MESYLATE (1 MG) 1 MG TABLET PO SCH ×4 (08:50→18:00)
[2017-04-28] MEDS: RIVASTIGMINE TARTRATE 4.6 MG PATCH.TD24 TD SCH (08:50)
[2017-04-28] MEDS: ASCORBIC ACID 500 MG TABLET PO SCH (08:50)
[2017-04-28] MEDS: GABAPENTIN 100 MG CAPSULE PO SCH ×4 (08:50→18:00)
[2017-04-28] MEDS: LACTOBACILLUS RHAMNOSUS GG 1 EACH CAP.SPRINK PO SCH ×2 (08:50→17:00)
[2017-04-28] MEDS: HEPARIN SODIUM, PORCINE 5000 UNITS/1 ML VIAL SQ SCH ×2 (08:54→21:29)
[2017-04-28] MEDS: MUPIROCIN OINT 2% 22 GM TUBE SCH ×2 (08:57→21:28)
[2017-04-28] MEDS: VITAMINS A AND D 56.7 GM TUBE TP SCH (08:57)
[2017-04-28] MEDS: BOOST PLUS FOOD-VANILLA 237 ML BOX PO SCH ×2 (09:48→17:00)
--- NOTE | 2017-04-28 12:00 | NUR ---
MS RN NOTES NOTED PATIENTS JACKSON WITH NOT DRAINING URIN. FLUSHED JACKSON UNABLE TO GET URIN RETURN. ATTEMPTED TO INSERT JACKSON CATHETER DR. COELHO NOTIFIED WAITING FOR EVALUATION.
--- NOTE | 2017-04-28 13:00 | NUR ---
MS RN NOTES PATIENT WAS SEEN AND EVALUATED BY DR. COELHO, JACKSON REINSERTED JACKSON BY DR. COELHO AFTER AN ATTEMPT BY RN. PATIENT WITH NEW 16 FR. JACKSON DRAINING DARK YELLOW URINE.
--- NOTE | 2017-04-28 13:00 | NUR ---
MS RN NOTES MEDICATIONS HELD DUE PATIENT BEING TOO SEDATED. WILL CONTINUE TO MONITOR.
[2017-04-28] MEDS ORDERED: K PHOS NEUTRAL 250 MG TABLET PO ONE (16:30)
--- NOTE | 2017-04-28 17:30 | NUR ---
MS RN NOTES PATIENT SEEN AND EVALUATED BY BATOOL OIL PAINTER REPORTED THAT PATIENT HAS INCREASED LETHARGY, DISCUSSED WITH DR. COELHO ORDERS RECEIVED FOR STAT ABG, CT OF THE HEAD, CMP, CBC, LACTIC ACID. PATIENT IN BED WITH NO SOB OR ACUTE DISTRESS NOTED. VS 120/78 PULSE: 85, O2 SAT. 98% TEMP OF 98.2 RESPIRATION 17. BS OF 175MG/DL. STAT ABG ALSO PERFORMED AWAITING FOR RESULTS. PATIENT RESPONDS TO PAINFUL STIMULI. WILL CONTINUE TO CLOSELY MONITOR.
[2017-04-28 17:46] LABS: ABG BASE EXCESS 2.1 mmol/L; ABG PCO2 32.3 mmHg (35.0-45.0); ABG PH 7.503 (7.350-7.450); AaDO2 65.5 mmHg; COHb 0.6 % (0.5-1.5); MetHb 0.4 % (0.0-1.5); SITE, ABG Left Radial; VENT MODE, BG N/C
--- NOTE | 2017-04-28 18:00 | NUR ---
MS RN NOTES MEDICATIONS HELD DUE TO PATIENT BEING TO LETHARGIC. WILL CONTINUE TO MONITOR.
[2017-04-28] MEDS: Potassium Chloride 40 MEQ in IV D5W 1,000 ML IV PRN (18:31)
--- NOTE | 2017-04-28 19:18 | NUR ---
MS RN NOTES PATIENT IN BED SLEEPING NO SOB OR ACUTE DISTRESS NOTED. PATIENT ABGS RESULTED NO SIGNIFICANT RESULT. PATIENT HAD CT SCAN DONE AND STAT LABS DONE WAITING FOR RESULTS. PATIENT STILL LETHARGIC. RESPONDS PAINFUL STIMULI. ENDORSED CARE TO NIGHT RN.
[2017-04-28 19:20] LABS: BASOPHILS % (AUTO) 0.1 % (0.0-2.0); HEMATOCRIT 34 % (39-51); HEMOGLOBIN 11.7 g/dL (13.5-17.5); LYMPHOCYTES # (AUTO) 0.6 /CMM (0.8-4.8); LYMPHOCYTES % (AUTO) 3.9 % (20.0-44.0); MEAN CORPUSCULAR HEMOGLOBIN 32 PG (26.0-33.0); MEAN CORPUSCULAR HGB CONC 34 g/dl (31.0-36.0); MEAN CORPUSCULAR VOLUME 94 fL (80-96); MONOCYTES # (AUTO) 0.4 /CMM (0.1-1.30); MONOCYTES % (AUTO) 2.7 % (2.0-12.0); NEUTROPHILS # (AUTO) 14.2 /CMM (1.8-8.9); NEUTROPHILS % (AUTO) 93.3 % (43.0-81.0); PLATELET COUNT (AUTO) 157 /CMM (150-450); RDW COEFFICIENT OF VARIATION 14.3 (11.5-15.0); RED BLOOD CELL COUNT(AUTO) 3.66 MIL/uL (4.5-6.0); WHITE BLOOD COUNT (AUTO) 15.3 K/uL (4.3-11.0)
--- NOTE | 2017-04-28 19:50 | NUR ---
MS RN NOTE: PATIENT RESTING IN BED, NO ACUTE DISTRESS NOTED. BREATHING EVEN AND UNLABORED, NO SOB NOTED. IV TO RIGHT HAND IN PLACE. IV TO RFA IN PLACE, INFUSING D5W WITH 40MEQ KCL AT 120 ML/HR. JACKSON CATHETER IN PLACE, DRAINING CLEAR YELLOW URINE. ISOLATION PRECAUTION OBSERVED. BED LOCKED AND IN LOWEST POSITION, CALL LIGHT IN REACH. WILL CONTINUE TO MONITOR.
[2017-04-28 20:17] VITALS: BP 129/90
[2017-04-28] MEDS: TAMSULOSIN 0.4 MG CAP.SR.24H PO SCH (21:28)
[2017-04-28 21:34] LABS: ALBUMIN 1.7 g/dL (3.4-5.0); CREATININE 1.6 mg/dL (0.6-1.3); POTASSIUM 3.6 mmol/L (3.5-5.1); TOTAL PROTEIN, SERUM 6.4 g/dL (6.4-8.2)
--- NOTE | 2017-04-28 22:00 | NUR ---
MS RN NOTE: PATIENT LETHARGIC AND MEDICATIONS HELD DUE TO RISK FOR ASPIRATION. WILL CONTINUE TO MONITOR.
[2017-04-29] MEDS: VANCOMYCIN 0.75 GM in IV NS 0.9% 250 ML IV SCH ×2 (00:37→18:42)
--- NOTE | 2017-04-29 02:30 | NUR ---
MS RN NOTE: PATIENT RESTING IN BED EYES OPENED AND RESPONDING TO SIMPLE QUESTIONS, WILL CONTINUE TO MONITOR.
--- NOTE | 2017-04-29 04:00 | NUR ---
MS RN NOTE: PATIENT PULLED OUT IV TO RIGHT HAND, COVERED WITH GAUZE, PRESSURE APPLIED, AND SECURED WITH TAPE. WILL CONTINUE TO MONITOR.
[2017-04-29] MEDS: PIPERACILLIN /TAZOBACTAM 3.375 G in IV D5W 50 ML IV SCH ×4 (05:58→23:51)
[2017-04-29] MEDS: Potassium Chloride 40 MEQ in IV D5W 1,000 ML IV PRN (06:20)
--- NOTE | 2017-04-29 06:20 | NUR ---
MS RN NOTE: PATIENT RESTING IN BED, NO ACUTE DISTRESS NOTED. PATIENT MORE RESPONSIVE TO SIMPLE QUESTIONS. IV TO RFA IN PLACE, INFUSING D5W WITH 40 MEQ KCL AT 120 ML/HR. BREATHING EVEN AND UNLABORED, NO SOB NOTED. JACKSON CATHETER IN PLACE. ISOLATION PRECAUTION OBSERVED. BED LOCKED AND IN LOWEST POSITION, CALL LIGHT IN REACH. WILL ENDORSE TO DAY NURSE TO CONTINUE WITH PLAN OF CARE.
[2017-04-29 06:21] LABS: EOSINOPHILS % (AUTO) 0.3 % (0.0-6.0); HEMATOCRIT 36 % (39-51); HEMOGLOBIN 12.5 g/dL (13.5-17.5); LYMPHOCYTES # (AUTO) 0.7 /CMM (0.8-4.8); LYMPHOCYTES % (AUTO) 4.7 % (20.0-44.0); MEAN CORPUSCULAR HEMOGLOBIN 32 PG (26.0-33.0); MEAN CORPUSCULAR HGB CONC 35 g/dl (31.0-36.0); MEAN CORPUSCULAR VOLUME 93 fL (80-96); MONOCYTES # (AUTO) 0.2 /CMM (0.1-1.30); MONOCYTES % (AUTO) 1.1 % (2.0-12.0); NEUTROPHILS # (AUTO) 14.9 /CMM (1.8-8.9); NEUTROPHILS % (AUTO) 93.9 % (43.0-81.0); PLATELET COUNT (AUTO) 182 /CMM (150-450); RDW COEFFICIENT OF VARIATION 14.4 (11.5-15.0); RED BLOOD CELL COUNT(AUTO) 3.85 MIL/uL (4.5-6.0); WHITE BLOOD COUNT (AUTO) 15.9 K/uL (4.3-11.0)
[2017-04-29 06:35] LABS: CALCIUM, SERUM 8.3 mg/dL (8.5-10.1); CREATININE 1.5 mg/dL (0.6-1.3); MAGNESIUM 2.3 mg/dL (1.8-2.4); PHOSPHORUS 2.9 mg/dL (2.5-4.9); POTASSIUM 4.5 mmol/L (3.5-5.1)
--- NOTE | 2017-04-29 07:30 | NUR ---
MS RN NOTE: PATIENT RESTING IN BED, NO ACUTE DISTRESS NOTED. BREATHING EVEN AND UNLABORED, NO SOB NOTED. IV TO RIGHT HAND IN PLACE. IV TO RFA IN PLACE, NO REDNESS OR INFILTRATION NOTED, INFUSING D5W WITH 40MEQ KCL AT 120 ML/HR. JACKSON CATHETER IN PLACE, DRAINING CLEAR YELLOW URINE. ISOLATION PRECAUTION OBSERVED. BED LOCKED AND IN LOWEST POSITION, CALL LIGHT IN REACH. WILL CONTINUE TO MONITOR.
[2017-04-29 08:00] VITALS: BP 120/75
[2017-04-29] MEDS: GABAPENTIN 100 MG CAPSULE PO SCH ×3 (08:47→18:00)
[2017-04-29] MEDS: LACTOBACILLUS RHAMNOSUS GG 1 EACH CAP.SPRINK PO SCH ×2 (08:47→17:00)
[2017-04-29] MEDS: ZINC SULFATE 220 MG CAPSULE PO SCH (08:47)
[2017-04-29] MEDS: MULTIVIT, IRON, MIN NO. 8, FA 1 TAB PO SCH (08:47)
[2017-04-29] MEDS: ASCORBIC ACID 500 MG TABLET PO SCH (08:47)
[2017-04-29] MEDS: BENZTROPINE MESYLATE (1 MG) 1 MG TABLET PO SCH ×3 (08:47→17:32)
--- NOTE | 2017-04-29 09:00 | NUR ---
RN NOTES PATIENT AWAKE, CONFUSED ORIENTED X1, ABLE ANSWER SIMPLE QUESTIONS, ATTEMPTING TO PULL OUT JACKSON CATHETER AND IV TUBING PER MD MAY CONTINUE SOFT WRIST RESTRAINTS
[2017-04-29] MEDS: HEPARIN SODIUM, PORCINE 5000 UNITS/1 ML VIAL SQ SCH ×2 (09:06→21:48)
[2017-04-29] MEDS: VITAMINS A AND D 56.7 GM TUBE TP SCH (09:10)
[2017-04-29] MEDS: BOOST PLUS FOOD-VANILLA 237 ML BOX PO SCH ×2 (09:10→17:00)
[2017-04-29] MEDS: MUPIROCIN OINT 2% 22 GM TUBE SCH ×2 (09:10→21:49)
--- NOTE | 2017-04-29 09:30 | NUR ---
RN NOTES DR. COELHO IN TO SEE PATIENT, REVIEWED CT SCAN RESULT WITH MD NO NEW ORDERS AT THIS TIME, PER MD NEUROLOGY TO SEE PT, MD WILL CALL AND NOTIFY, PT ABLE TO BE AROUSED, NO CHANGES IN MOBILITY NOTED, ABLE TO RESPOND TO SIMPLE QUESTIONS, WILL CONTINUE TO MONITOR PER ORDERS
--- NOTE | 2017-04-29 10:21 | NUR ---
RN NOTES NOTIFIED DR. COELHO ABOUT CT RESULTS PER MD CONTINUE TO MONITOR WILL COME TO ASSESS PT
--- NOTE | 2017-04-29 10:34 | NUR ---
RN NOTES CONFIRMED WITH DR. BALDERAS REGARDING IVF, PER MD TO GIVE IVF ORDERED WITH 20MEQ OF POTASSIUM WILL ADMINISTER AND CONTINUE TO MONITOR
[2017-04-29] MEDS: Potassium Chloride 20 MEQ in IV D5W 1,000 ML IV PRN (12:13)
--- NOTE | 2017-04-29 18:55 | NUR ---
MS RN NOTE: PATIENT RESTING IN BED, NO ACUTE DISTRESS NOTED. BREATHING EVEN AND UNLABORED, NO SOB NOTED. IV TO RFA IN PLACE, NO REDNESS OR INFILTRATION NOTED, INFUSING D5W WITH 20MEQ KCL AT 120 ML/HR. JACKSON CATHETER IN PLACE, DRAINING CLEAR YELLOW URINE. ISOLATION PRECAUTIONS OBSERVED. BED LOCKED AND IN LOWEST POSITION, CALL LIGHT IN REACH. WILL CONTINUE TO MONITOR AND ENDORSE TO NEXT SHIFT FOR CONTINUITY OF CARE
--- NOTE | 2017-04-29 19:25 | NUR ---
MS RN NOTE: RECEIVED PATIENT RESTING IN BED, AROUSABLE TO HIS NAME, VERBALLY RESPONSIVE. NO ACUTE DISTRESS NOTED. BREATHING EVEN AND UNLABORED, NO SOB NOTED. IV TO RFA INTACT AND PATENT, FLUSHED WITH NS, D5W WITH 40MEQ KCL AT 120 ML/HR INFUSING WELL. JACKSON CATHETER IN PLACE, DRAINING CLEAR YELLOW URINE. WITH ON AND OFF EPISODE OF ATTEMPTING TO PULL OUT F/C . ISOLATION PRECAUTION OBSERVED. BED LOCKED AND IN LOWEST POSITION, CALL LIGHT IN REACH. SAFETY PRECAUTIONS OBSERVED. WILL CONTINUE TO MONITOR.
--- NOTE | 2017-04-29 19:40 | NUR ---
PT'S IV SITE ON RFA LEAKING, REMOVED. PRESSURE APPLIED. INSERTED IV G#22 ON RFA X 1 ATTEMPT, WITH GOOD VENOUS RETURN. SECURED PROPERLY. PT TOLERATED WELL. IVF INFUSING WELL. WILL CONT TO MONITOR.
[2017-04-29 20:00] VITALS: BP 130/90
[2017-04-29] MEDS: TAMSULOSIN 0.4 MG CAP.SR.24H PO SCH (21:47)
--- NOTE | 2017-04-29 21:47 | NUR ---
FLOMAX UNABLE TO GIVE, PT REFUSED X 3. AROUSABLE TO NAME, OPENS EYES, ABLE TO RESPOND VERBALLY, BUT WILL CLOSE EYES AND GOES BACK TO SLEEP RIGHT AWAY. WILL CONTINUE TO MONITOR.
[2017-04-30] MEDS: PIPERACILLIN /TAZOBACTAM 3.375 G in IV D5W 50 ML IV SCH ×4 (05:31→23:14)
[2017-04-30] MEDS ORDERED: IV PREMIX D5W + KCL 1,000 ML IV ONE (06:00)
--- NOTE | 2017-04-30 06:43 | NUR ---
MS RN NOTE: PATIENT RESTING IN BED, AROUSABLE TO HIS NAME, VERBALLY RESPONSIVE.NO ACUTE DISTRESS NOTED. BREATHING EVEN AND UNLABORED, NO SOB NOTED. IV TO RFA INTACT AND PATENT, IVF INFUSING WELL. JACKSON CATHETER IN PLACE, DRAINING WITH CLEAR YELLOW URINE. STILL NOTED WITH ON AND OFF EPISODES OF ATTEMPTING TO PULL OUT F/C. FREQUENT REORIENTATION DONE. ISOLATION PRECAUTION OBSERVED. AM CARE DONE. BED LOCKED AND IN LOWEST POSITION, CALL LIGHT IN REACH. SAFETY PRECAUTIONS OBSERVED. WILL ENDORSE TO NEXT SHIFT FOR ZAIDA.
[2017-04-30 06:58] LABS: CREATININE 1.3 mg/dL (0.6-1.3); POTASSIUM 3.1 mmol/L (3.5-5.1)
[2017-04-30] MEDS: Potassium Chloride 20 MEQ in IV D5W 1,000 ML IV PRN ×2 (07:14→17:40)
--- NOTE | 2017-04-30 07:30 | NUR ---
MS/RN Patient received Patient from plant operator/shift supervisor. Bilateral soft wrist restraints in place as continues to be agitated and a fall risk. Safety checks carried out and skin assessment around wrists completed. Bed in low setting, side rails X3 in upright position. Will continue to monitor and ensure safety.
[2017-04-30 08:00] VITALS: BP_SYST 140; BP_DIAS 84; BP_DIAS 94
[2017-04-30] MEDS: BOOST PLUS FOOD-VANILLA 237 ML BOX PO SCH ×2 (08:36→17:41)
[2017-04-30] MEDS: ZINC SULFATE 220 MG CAPSULE PO SCH (08:36)
[2017-04-30] MEDS: LACTOBACILLUS RHAMNOSUS GG 1 EACH CAP.SPRINK PO SCH ×2 (08:36→17:40)
[2017-04-30] MEDS: MULTIVIT, IRON, MIN NO. 8, FA 1 TAB PO SCH (08:36)
[2017-04-30] MEDS: ASCORBIC ACID 500 MG TABLET PO SCH (08:36)
[2017-04-30] MEDS: BENZTROPINE MESYLATE (1 MG) 1 MG TABLET PO SCH ×3 (08:36→17:40)
[2017-04-30] MEDS: GABAPENTIN 100 MG CAPSULE PO SCH ×3 (08:36→17:40)
[2017-04-30] MEDS: VITAMINS A AND D 56.7 GM TUBE TP SCH (08:37)
[2017-04-30] MEDS: MUPIROCIN OINT 2% 22 GM TUBE SCH ×2 (08:37→21:40)
[2017-04-30] MEDS: HEPARIN SODIUM, PORCINE 5000 UNITS/1 ML VIAL SQ SCH (08:47)
[2017-04-30] MEDS ORDERED: POTASSIUM CHLORIDE 20 MEQ TAB.PRT.SR PO ONE (09:00)
[2017-04-30] MEDS: METFORMIN 500 MG TABLET PO SCH ×3 (09:00→17:40)
--- NOTE | 2017-04-30 09:11 | NUR ---
MS/RN Medications Medications given crushed in apple sauce.
--- NOTE | 2017-04-30 09:11 | NUR ---
MS/RN Restraints Order for bilateral soft wrist restraints renewed.
[2017-04-30 09:20] LABS: EOSINOPHILS % (AUTO) 0.1 % (0.0-6.0); HEMATOCRIT 34 % (39-51); HEMOGLOBIN 11.6 g/dL (13.5-17.5); LYMPHOCYTES # (AUTO) 0.6 /CMM (0.8-4.8); LYMPHOCYTES % (AUTO) 4.5 % (20.0-44.0); MEAN CORPUSCULAR HEMOGLOBIN 32 PG (26.0-33.0); MEAN CORPUSCULAR HGB CONC 34 g/dl (31.0-36.0); MEAN CORPUSCULAR VOLUME 94 fL (80-96); MONOCYTES # (AUTO) 0.5 /CMM (0.1-1.30); MONOCYTES % (AUTO) 3.6 % (2.0-12.0); NEUTROPHILS # (AUTO) 11.6 /CMM (1.8-8.9); NEUTROPHILS % (AUTO) 91.8 % (43.0-81.0); PLATELET COUNT (AUTO) 164 /CMM (150-450); RDW COEFFICIENT OF VARIATION 14.7 (11.5-15.0); RED BLOOD CELL COUNT(AUTO) 3.63 MIL/uL (4.5-6.0); WHITE BLOOD COUNT (AUTO) 12.6 K/uL (4.3-11.0)
[2017-04-30] MEDS ORDERED: ASPIRIN EC 81 MG TABLET.DR PO SCH (10:00)
--- NOTE | 2017-04-30 10:30 | NUR ---
MS/RN Restraints removed Patient now appears calmer and more cooperative, therefore restraints removed at this time. Will continue to closely monitor.
[2017-04-30] MEDS: POTASSIUM CHLORIDE 20 MEQ TAB.PRT.SR PO SCH ×2 (10:38→11:38)
--- NOTE | 2017-04-30 11:00 | NUR ---
MS/RN S/B Dr Hayden Seen by Dr Hayden - orders wrote and carried out. For possible discharge later today, medication reconciliation completed.
--- NOTE | 2017-04-30 11:30 | NUR ---
MS/rn coronary care unit All wound care carried out, pictures taken as for possible discharge later today.
--- NOTE | 2017-04-30 12:56 | NUR ---
MS/RN S/B Dr Woo Seen by Dr Woo: -limit sedating medications, -okay to restart rivastigmine -PT when able
[2017-04-30] MEDS: VANCOMYCIN 0.75 GM in IV NS 0.9% 250 ML IV SCH (13:13)
[2017-04-30 16:00] VITALS: BP 128/78
--- NOTE | 2017-04-30 18:35 | NUR ---
MS/RN End note Patient to be discharged back to [facility] this evening, rifle case repairer trying to arrange transport. Paper work completed, chart copied, pictures taken. All needs attended, kept clean and comfortable. Will endore to night club manager.
--- NOTE | 2017-04-30 19:30 | NUR ---
RN NOTES RECEIVED PATIENT IN BED WITH EYES CLOSED, AROUSABLE. NO ACUTE DISTRESS NOTED. NO SIGNS OF PAIN NOTED. IV SITE PATENT, INTACT; IVF INFUSING ORDERED. RESTRAINTS OFF. PATIENT CALM AT THIS TIME. JACKSON CATH PATENT, INTACT; DRAINING CLEAR YELLOW URINE. ON LOW BED WITH BILATERAL UPPER SIDE RAILS UP. CALL YBARRA WITHIN EASY REACH. WILL CONTINUE TO MONITOR.
[2017-04-30 20:00] VITALS: BP 144/99
[2017-04-30] MEDS: TAMSULOSIN 0.4 MG CAP.SR.24H PO SCH (22:00)
--- NOTE | 2017-04-30 22:31 | NUR ---
RN NOTES PATIENT AROUSABLE, BUT STILL TOO SLEEPY TO TAKE FLOMAX PO SAFELY. FLOMAX HELD.
--- NOTE | 2017-04-30 23:45 | NUR ---
RN NOTES PATIENT PICKED UP BY [facility] FOR DISCHARGE TO [facility]. LEA AT [facility] CONFIRMED THAT PATIENT WILL BE ACCEPTED IN THEIR FACILITY. DISCHARGE PAPERS AND REPORT GIVEN TO [facility] STAFF. PATIENT IN STABLE CONDITION. PATIENT CALM AND COOPERATIVE AT THIS TIME; STILL SLEEPY BUT AROUSABLE.
== END 2017-04-30 23:45 | DRG 602 ==
LOC: MEDSG2 23:42
PROVIDERS: ADMIT Nurse Practitioner Acute Care; ATTEND Nurse Practitioner Acute Care
DX: L03.116 Cellulitis of left lower limb (principal); G92 Toxic encephalopathy; L89.152 Pressure ulcer of sacral region, stage 2; E44.0 Moderate protein-calorie malnutrition; J90 Pleural effusion, not elsewhere classified; L89.312 Pressure ulcer of right buttock, stage 2; L89.322 Pressure ulcer of left buttock, stage 2; E87.0 Hyperosmolality and hypernatremia; N13.30 Unspecified hydronephrosis; N17.9 Acute kidney failure, unspecified; F05 Delirium due to known physiological condition; J98.11 Atelectasis; N13.8 Other obstructive and reflux uropathy; B35.1 Tinea unguium; L03.115 Cellulitis of right lower limb; L89.610 Pressure ulcer of right heel, unstageable; F03.90 Unspecified dementia, unspecified severity, without behavioral disturbance, psychotic disturbance, mood disturbance, and anxiety; D72.829 Elevated white blood cell count, unspecified; D63.8 Anemia in other chronic diseases classified elsewhere; E87.6 Hypokalemia; N28.1 Cyst of kidney, acquired; F39 Unspecified mood [affective] disorder; K74.60 Unspecified cirrhosis of liver; E88.09 Other disorders of plasma-protein metabolism, not elsewhere classified; Z68.23 Body mass index [BMI] 23.0-23.9, adult; I10 Essential (primary) hypertension; I71.4 Abdominal aortic aneurysm, without rupture; R73.9 Hyperglycemia, unspecified; L98.8 Other specified disorders of the skin and subcutaneous tissue; Z22.322 Carrier or suspected carrier of Methicillin resistant Staphylococcus aureus; S90.822A Blister (nonthermal), left foot, initial encounter; X58.XXXA Exposure to other specified factors, initial encounter; Y93.9 Activity, unspecified; Y92.129 Unspecified place in nursing home as the place of occurrence of the external cause; E86.0 Dehydration; N40.1 Benign prostatic hyperplasia with lower urinary tract symptoms; E27.9 Disorder of adrenal gland, unspecified
CPT/HCPCS: 36415; 36600; 70450-TC; 73610-TC; 73630-TC; 76770-TC; 80048-TC; 80053-TC; 80061-TC; 80202-TC; 81000-TC; 82550-TC; 82570-TC; 82962-TC; 83605-TC; 83735-TC; 83891; 83900; 83909; 83912; 83970; 84100-TC; 84155; 84155-TC; 84165; 84300-TC; 85025-TC; 85652-TC; 87040-TC; 87081-TC; 87086-TC; 94799-TC; A4216; A4217; A4606; A6253; A6402; A6403; J1644; J2543; J3370; J3480; J3490; J7030; J7050; J7060; J7070